=== PATIENT | female | born 1990 | race Caucasian/White ===

== ENCOUNTER 2017-04-15 16:23 | Emergency (ER) | payer BC ==
[2017-04-15 17:40] LABS: Hematocrit 33 % (35-47); Mean Corpuscular HGB Conc 33 g/dl (31-36); Mean Corpuscular Hemoglobin 31 pg (27-31); Mean Corpuscular Volume 94 fL (80-97); Mean Platelet Volume 8 um3 (7.4-10.4); Red Blood Count 3.52 10^6/ul (4.0-5.4); Red Cell Distribution Width 13 % (10.5-15); White Blood Count 11.9 10^3/ul (3.5-10.8)
[2017-04-15 17:52] LABS: Urine Bacteria Absent (Absent); Urine Bilirubin Negative (Negative); Urine Glucose Negative (Negative); Urine Nitrite Negative (Negative)
[2017-04-15 17:58] LABS: Albumin 3.7 g/dL (3.2-5.2); Calcium 8.8 mg/dL (8.6-10.3); EGFR African American 193.3 (>60); EGFR Non-African American 150.3 (>60); Globulin 2.9 g/dL (2-4); Potassium 3.4 mmol/L (3.5-5.0); Total Bilirubin 0.3 mg/dL (0.2-1.0); Total Protein 6.6 g/dL (6.4-8.9)
--- NOTE | 2017-04-15 18:18 | ED ---
- HPI Summary HPI Summary: 27F at 25 weeks presents with chest pain, SOB, lower abdominal pain, and right lower leg swelling. She states the chest pain and SOB have occurred intermittent for two months. She was seen in [place] and they advised a CTA which she refused at that time. She states she gets heart palpitations occasionally. She has history of heart palpitations. She states her right lower leg swells occasional. She states she also has pain in her calf. Her last ob appointment was middle of february. She states that she has a lot of pelvic discomfort that was not present in previous pregnancies. She denies any hematuria, vaginal discharge, leaking of fluids, dysuria, flank pain. She admits to constipation and nausea. She denies any fever, diarrhea or vomiting. - History of Current Complaint Chief Complaint: EDOBProblems Stated Complaint: LEG SWELLING/25 WKS PREG-PRESSURE Time Seen by Provider: 04/15/17 17:07 Pain Intensity: 2 - Assessment SAB: 1 IEA: 0 Hx Hysterectomy: No - Additional Pertinent History Maternal Blood Type and Rh: A Positive - Allergies/Home Medications Allergies/Adverse Reactions: Allergies Allergy/AdvReac Type Severity Reaction Status Date / Time Morphine Allergy Severe Chest Verified 04/15/17 16:27 pain/SOB Latex Allergy Unknown Unknown Verified 04/15/17 16:27 Reaction Details PMH/Surg Hx/FS Hx/Imm Hx Endocrine/Hematology History: Denies: Hx Anticoagulant Therapy, Hx Diabetes, Hx Thyroid Disease Cardiovascular History: Denies: Hx Hypertension, Hx Pacemaker/ICD Respiratory History: Reports: Hx Asthma Denies: Hx Chronic Obstructive Pulmonary Disease (COPD) History: Denies: Hx Renal Disease Sensory History: Denies: Hx Hearing Aid Neurological History: Denies: Hx Dementia, Hx Seizures Psychiatric History: Reports: Hx Anxiety, Hx Depression, Other Psychiatric Issues/Disorders - "hx mental illness" Denies: Hx Panic Disorder, Hx Substance Abuse - Surgical History Surgery Procedure, Year, and Place: C SECTION 6 MOS AGO, UTERINE POLYP REMOVAL - Immunization History Date of Tetanus Vaccine: up to date per pt Infectious Disease History: Yes Infectious Disease History: Denies: Hx Hepatitis, Hx Human Immunodeficiency Virus (HIV), Traveled Outside the [place] in Last 30 Days - Family History Known Family History: Negative: Blood Disorder - Social History Alcohol Use: Occasionally Substance Use Type: Reports: None Smoking Status (MU): Heavy Every Day Tobacco Smoker Review of Systems Negative: Fever Positive: Chest Pain Positive: Shortness Of Breath. Negative: Cough Positive: Abdominal Pain, Nausea. Negative: Vomiting, Diarrhea All Other Systems Reviewed And Are Negative: Yes Physical Exam - Physical Exam Triage Information Reviewed: Yes Vital Signs Reviewed: Yes Appearance: Positive: Well-Appearing Skin: Positive: Warm, Dry Head/Face: Positive: Normal Head/Face Inspection Eyes: Positive: Normal, EOMI, ARIES, Conjunctiva Clear ENT: Positive: Normal ENT inspection, Pharynx normal, TMs normal Respiratory/Lung Sounds: Positive: Clear to Auscultation, Breath Sounds Present Cardiovascular: Positive: Normal, RRR Abdomen Description: Positive: Nontender, Soft, Other: - baby felt above umbilicus Bowel Sounds: Positive: Present Musculoskeletal: Positive: Other - good pulses, capillary refill< 2secs. Negative: Serena Sign Left, Serena Sign Right, Edema Left, Edema Right Diagnostics - Vital Signs Vital Signs Temp Pulse Resp BP Pulse Ox 04/15/17 18:00 98 17 106/58 96 04/15/17 17:30 15 04/15/17 17:03 105 104/60 97 04/15/17 17:01 104 96 04/15/17 16:44 105 97 04/15/17 16:42 99.0 F 104 20 122/70 97 04/15/17 16:27 98.6 F 113 16 127/74 99 - Laboratory Lab Results: Lab Results 04/15/17 04/15/17 04/15/17 Range/Units 17:20 17:20 17:20 WBC 11.9 H (3.5-10.8) 10^3/ul RBC 3.52 L (4.0-5.4) 10^6/ul Hgb 11.0 L (12.0-16.0) g/dl Hct 33 L (35-47) % MCV 94 (80-97) fL MCH 31 (27-31) pg MCHC 33 (31-36) g/dl RDW 13 (10.5-15) % Plt Count 276 (150-450) 10^3/ul MPV 8 (7.4-10.4) um3 Neut % (Auto) 73.3 (38-83) % Lymph % (Auto) 21.2 L (25-47) % Wheeler % (Auto) 4.0 (1-9) % Eos % (Auto) 0.7 (0-6) % Baso % (Auto) 0.8 (0-2) % Absolute Neuts (auto) 8.7 H (1.5-7.7) 10^3/ul Absolute Lymphs (auto) 2.5 (1.0-4.8) 10^3/ul Absolute Monos (auto) 0.5 (0-0.8) 10^3/ul Absolute Eos (auto) 0.1 (0-0.6) 10^3/ul Absolute Basos (auto) 0.1 (0-0.2) 10^3/ul Absolute Nucleated RBC 0 10^3/ul Nucleated RBC % 0 INR (Anticoag Therapy) 0.90 (0.89-1.11) APTT 25.9 L (26.0-36.3) seconds Sodium 135 (133-145) mmol/L Potassium 3.4 L (3.5-5.0) mmol/L Chloride 103 (101-111) mmol/L Carbon Dioxide 25 (22-32) mmol/L Anion Gap 7 (2-11) mmol/L BUN 9 (6-24) mg/dL Creatinine 0.50 L (0.51-0.95) mg/dL Est GFR ( Amer) 193.3 (>60) Est GFR (Non-Af Amer) 150.3 (>60) BUN/Creatinine Ratio 18.0 (8-20) Glucose 151 H (70-100) mg/dL Calcium 8.8 (8.6-10.3) mg/dL Total Bilirubin 0.30 (0.2-1.0) mg/dL AST 13 (13-39) U/L ALT 11 (7-52) U/L Alkaline Phosphatase 52 (34-104) U/L Troponin I 0.00 (<0.04) ng/mL Total Protein 6.6 (6.4-8.9) g/dL Albumin 3.7 (3.2-5.2) g/dL Globulin 2.9 (2-4) g/dL Albumin/Globulin Ratio 1.3 (1-3) Beta HCG, Quant Pending Urine Color Urine Appearance Urine pH (5-9) Ur Specific Hinkle (1.010-1.030) Urine Protein (Negative) Urine Ketones (Negative) Urine Blood (Negative) Urine Nitrate (Negative) Urine Bilirubin (Negative) Urine Urobilinogen (Negative) Ur Leukocyte Esterase (Negative) Urine WBC (Auto) (Absent) Urine RBC (Auto) (Absent) Ur Squamous Epith Cells (Absent) Urine Bacteria (Absent) Urine Glucose (Negative) Blood Type 04/15/17 04/15/17 Range/Units 17:20 17:30 WBC (3.5-10.8) 10^3/ul RBC (4.0-5.4) 10^6/ul Hgb (12.0-16.0) g/dl Hct (35-47) % MCV (80-97) fL MCH (27-31) pg MCHC (31-36) g/dl RDW (10.5-15) % Plt Count (150-450) 10^3/ul MPV (7.4-10.4) um3 Neut % (Auto) (38-83) % Lymph % (Auto) (25-47) % Wheeler % (Auto) (1-9) % Eos % (Auto) (0-6) % Baso % (Auto) (0-2) % Absolute Neuts (auto) (1.5-7.7) 10^3/ul Absolute Lymphs (auto) (1.0-4.8) 10^3/ul Absolute Monos (auto) (0-0.8) 10^3/ul Absolute Eos (auto) (0-0.6) 10^3/ul Absolute Basos (auto) (0-0.2) 10^3/ul Absolute Nucleated RBC 10^3/ul Nucleated RBC % INR (Anticoag Therapy) (0.89-1.11) APTT (26.0-36.3) seconds Sodium (133-145) mmol/L Potassium (3.5-5.0) mmol/L Chloride (101-111) mmol/L Carbon Dioxide (22-32) mmol/L Anion Gap (2-11) mmol/L BUN (6-24) mg/dL Creatinine (0.51-0.95) mg/dL Est GFR ( Amer) (>60) Est GFR (Non-Af Amer) (>60) BUN/Creatinine Ratio (8-20) Glucose (70-100) mg/dL Calcium (8.6-10.3) mg/dL Total Bilirubin (0.2-1.0) mg/dL AST (13-39) U/L ALT (7-52) U/L Alkaline Phosphatase (34-104) U/L Troponin I (<0.04) ng/mL Total Protein (6.4-8.9) g/dL Albumin (3.2-5.2) g/dL Globulin (2-4) g/dL Albumin/Globulin Ratio (1-3) Beta HCG, Quant Urine Color Yellow Urine Appearance Clear Urine pH 6.0 (5-9) Ur Specific Hinkle 1.025 (1.010-1.030) Urine Protein Negative (Negative) Urine Ketones 1+ H (Negative) Urine Blood Negative (Negative) Urine Nitrate Negative (Negative) Urine Bilirubin Negative (Negative) Urine Urobilinogen Negative (Negative) Ur Leukocyte Esterase Trace H (Negative) Urine WBC (Auto) Absent (Absent) Urine RBC (Auto) Trace(0-2/hpf) (Absent) Ur Squamous Epith Cells Present H (Absent) Urine Bacteria Absent (Absent) Urine Glucose Negative (Negative) Blood Type A Positive Result Diagrams: 04/15/17 17:20 04/15/17 17:20 Lab Statement: Any lab studies that have been ordered have been reviewed, and results considered in the medical decision making process. - Ultrasound No standard instances Ultrasound Interpretation: Positive (See Comments) - IMPRESSION: Normal single intrauterine gestation with growth parameters that yield an average gestational age of 23 weeks and 0 days. Ultrasound Interpretation Completed By: Radiologist - EKG No standard instances Cardiac Rate: NL EKG Rhythm: Sinus Rhythm ST Segment: Normal Course/Dx - Course Course Of Treatment: 27F at 25 weeks presents with chest pain, SOB, lower abdominal pain, and right lower leg swelling. She states the chest pain and SOB have occurred intermittent for two months. She was seen in [place] and they advised a CTA which she refused at that time. She states she gets heart palpitations occasionally. She has history of heart palpitations. She states her right lower leg swells occasional. She states she also has pain in her calf. Her last ob appointment was middle of february. She states that she has a lot of pelvic discomfort that was not present in previous pregnancies. She denies any hematuria, vaginal discharge, leaking of fluids, dysuria, flank pain. She admits to constipation and nausea. She denies any fever, diarrhea or vomiting. lungs CTA. neg homans, nontender abdomen. u/s calf normal. CTA normal. u/s normal. patient understands and agrees with plan. - Differential Diagnosis/HQI/PQRI: Intrauterine , Other: - PE, DVT, abdominal pain - Diagnoses Provider Diagnoses: Chest pain, Abdominal pain in Discharge - Discharge Plan Condition: Good Disposition: HOME Patient Education Materials: Abdominal Pain in (ED) Referrals: Allie Flaherty NP [Primary Care Provider] - Tara Estrada MD [Medical Doctor] - Additional Instructions: Follow up with obgyn Return to ED if develop any new or worsening symptoms
--- NOTE | 2017-04-15 18:28 | RAD ---
HISTORY: Bilateral lower extremity swelling and chest pain TECHNIQUE: Multiple transverse and longitudinal ultrasound images were obtained of the veins of the bilateral lower extremities using grayscale, color Doppler, and spectral Doppler imaging with and without compression and with augmentation. FINDINGS: VEINS: Bilaterally the common femoral veins, deep femoral veins, femoral veins and popliteal veins are compressible throughout their course, with normal flow on color Doppler imaging and normal response to augmentation on spectral Doppler imaging. SOFT TISSUES: Grossly normal. No large popliteal fossa cyst was identified. IMPRESSION: No sonographic evidence of deep vein thrombosis.
--- NOTE | 2017-04-15 19:01 | RAD ---
INDICATION: Pelvic pain. Comparison: None Multiple transabdominal real time images of the gravid uterus were obtained. This exam demonstrates a single intrauterine in the Cephalic presentation. heart and limb motion were noted. The heart rate was 136 beats per minute. The placenta was located anterior. There is no placenta previa. The amniotic fluid volume appeared to be within normal limits with an amniotic fluid index measuring 14.5 cm. The cervix is closed measuring at least 2.6 cm in length. Biparietal diameter (cm) 5.7 which corresponds to a gestational age of 23 weeks and 3 days. Head circumference (cm) 21.2 which corresponds to a gestational age of 23 weeks and 2 days. abdominal circumference(cm) 17.3 which corresponds to a gestational age of 22 weeks and 2 days. femur length (cm) 4.0 which corresponds to a gestational age of 23 weeks. The composite estimated gestational age was 23 weeks. The estimated weight at this time is 525 grams +/- 77 grams. The four-chamber heart, cord insertion, bladder and three-vessel cord are visualized and appear to be within normal limits. IMPRESSION: Normal single intrauterine gestation with growth parameters that yield an average gestational age of 23 weeks and 0 days.
[2017-04-15] MEDS ORDERED: Iohexol 350* (CONTRAST) 500 ML MDV IV ONE (19:29)
--- NOTE | 2017-04-15 19:48 | RAD ---
INDICATION: Right leg swelling, chest pain and shortness of breath in a 25 week woman COMPARISON: None TECHNIQUE: Axial source images were acquired following the administration of 60 mL Omnipaque [address] angiographic technique. Coronal and sagittal reconstructed images were constructed and reviewed. FINDINGS: There there are no filling defects in the pulmonary arteries to indicate acute pulmonary embolic disease. There are no focal infiltrates or effusions. There are no pulmonary parenchymal masses. The heart is normal in size. There is no evidence of pericardial effusion. There is no evidence of aortic aneurysm or dissection. There is no mediastinal, hilar, or axillary lymphadenopathy. The visualized osseous structures appear normal. Limited views of the upper abdomen show no abnormalities. IMPRESSION: No CT of evidence of pulmonary embolism.
[2017-04-15 20:33] VITALS: BP 94/55
== END 2017-04-15 20:52 | disposition home or self-care (01) ==
LOC: ED 16:23
DX: R07.9 Chest pain, unspecified (principal); F17.210 Nicotine dependence, cigarettes, uncomplicated; R06.02 Shortness of breath; R10.9 Unspecified abdominal pain; R11.0 Nausea; Z34.92 Encounter for supervision of normal pregnancy, unspecified, second trimester
CPT/HCPCS: 36415; 71275; 76815; 80053; 81003; 81015; 84484; 84702; 85025; 85610; 85730; 86900; 86901; 87086; 93005; 93970; 99283; Q9967

== ENCOUNTER 2017-07-23 06:13 | Inpatient (IN) | payer MEDICAID ==
[~2017-07-23 06:13] MED LIST: Sodium Citrate/Citric Acid* 15 ML UDC PO ONE
[2017-07-23] MEDS ORDERED: ceFOXitin 2 GM IVPREMIX* 2 GM/50 ML BAG IVPB ONE (07:00)
[2017-07-23] MEDS ORDERED: OXYTOCIN* 10 UNITS/ML 1 ML VIAL ONE (09:32)
[2017-07-23] MEDS ORDERED: Ketorolac INJ* 30 MG/ML 1 ML VIAL ONE (09:32)
[2017-07-23] MEDS ORDERED: Ondansetron INJ* 2 MG/ML VIAL ONE (09:32)
[2017-07-23] MEDS ORDERED: Midazolam* 1 MG/ML 2 ML VIAL (2 MG) ONE (10:18)
[2017-07-23] MEDS ORDERED: Phenylephrine IV* 40 MCG/ML 10 ML SYRINGE ONE (10:21)
[2017-07-23] MEDS ORDERED: EPHEDrine (Pressors)* 50 MG/ML VIAL ONE (10:22)
[2017-07-23] MEDS ORDERED: Witch Hazel PAD* JAR TOPICAL PRN (10:48)
[2017-07-23] MEDS ORDERED: Glycerin ADULT SUPP PR PRN (10:48)
[2017-07-23] MEDS ORDERED: Zolpidem TAB* 5 MG PO PRN (10:48)
[2017-07-23] MEDS ORDERED: Dibucaine 1% 28.35 GM TUBE PR PRN (10:48)
[2017-07-23] MEDS ORDERED: Tetan/Diph/Pertus SYR(Tdap)* 0.5 ML SYR(BOOSTRIX) use SYR IM ONE (10:48)
[2017-07-23] MEDS ORDERED: Acetaminophen TAB* 325 MG PO PRN (10:48)
[2017-07-23] MEDS ORDERED: oxyCODONE/Acetamin 5/325 MG* TAB PO PRN (10:55)
[2017-07-23] MEDS ORDERED: DiMENhydriNATE IV* 50 MG/ML VIAL IV PUSH PRN (10:55)
[2017-07-23] MEDS ORDERED: Acetaminophen IV 1GM/100ML * 1,000 MG/100 ML VIAL IVPB ONE (10:55)
[2017-07-23] MEDS ORDERED: Oxytocin in LR* 0 UNITS/0 ML BAG IVPB ONE (10:59)
[2017-07-23] MEDS ORDERED: Acetaminophen IV 1GM/100ML * 100 ML ONE (10:59)
[2017-07-23] MEDS: oxyCODONE/Acetamin 5/325 MG* TAB PO PRN ×3 (12:14→20:04)
[2017-07-23] MEDS: Simethicone TAB* 80 MG TAB.CHEW PO SCH ×3 (14:33→20:04)
[2017-07-23] MEDS: Docusate CAP* 100 MG PO SCH ×2 (14:33→20:04)
[2017-07-23] MEDS: Ibuprofen TAB* 600 MG PO PRN ×2 (16:04→22:39)
[2017-07-24] MEDS: oxyCODONE/Acetamin 5/325 MG* TAB PO PRN ×6 (00:01→23:29)
[2017-07-24] MEDS: Ibuprofen TAB* 600 MG PO PRN ×3 (04:14→21:01)
[2017-07-24] MEDS: Docusate CAP* 100 MG PO SCH ×3 (08:18→21:01)
[2017-07-24] MEDS: Simethicone TAB* 80 MG TAB.CHEW PO SCH ×4 (08:18→23:32)
[2017-07-24 08:22] LABS: ABS Basophils 0 10^3/ul (0-0.2); ABS Eosinophils 0.1 10^3/ul (0-0.6); ABS Lymphocytes 2.4 10^3/ul (1.0-4.8); ABS Monocytes 1.3 10^3/ul (0-0.8); ABS Neutrophils 11.8 10^3/ul (1.5-7.7); ABS Nucleated RBC 0 10^3/ul; Eosinophil % 0.9 % (0-6); Hematocrit 28 % (35-47); Hemoglobin 8.8 g/dl (12.0-16.0); Mean Corpuscular HGB Conc 32 g/dl (31-36); Mean Corpuscular Hemoglobin 27 pg (27-31); Mean Corpuscular Volume 86 fL (80-97); Mean Platelet Volume 8 um3 (7.4-10.4); Nucleated Red Blood Cells % 0; Platelet Count 222 10^3/ul (150-450); Red Blood Count 3.23 10^6/ul (4.0-5.4); Red Cell Distribution Width 14 % (10.5-15); White Blood Count 15.7 10^3/ul (3.5-10.8)
[2017-07-24] MEDS: Ferrous Gluconate TAB* 324 MG TAB PO SCH ×2 (08:26→23:35)
--- NOTE | 2017-07-24 15:26 | PTEDU ---
Patient Name: ALICIA BUTTERFIELD YUE GALLARDOVCHENKOALICIA selected video: Never Ever Shake a Baby to view on 07/24/2017 at 3:25:55 PM [id number]
[2017-07-25] MEDS: Ibuprofen TAB* 600 MG PO PRN ×2 (03:20→16:08)
[2017-07-25] MEDS: oxyCODONE/Acetamin 5/325 MG* TAB PO PRN ×5 (03:37→21:40)
[2017-07-25] MEDS: Simethicone TAB* 80 MG TAB.CHEW PO SCH ×4 (08:04→21:40)
[2017-07-25] MEDS: Docusate CAP* 100 MG PO SCH ×3 (08:04→21:39)
[2017-07-25] MEDS: Ferrous Gluconate TAB* 324 MG TAB PO SCH ×2 (08:07→21:50)
[2017-07-25 19:49] VITALS: BP 117/61
[2017-07-26] MEDS: Ibuprofen TAB* 600 MG PO PRN ×3 (00:49→15:30)
[2017-07-26] MEDS: oxyCODONE/Acetamin 5/325 MG* TAB PO PRN ×4 (01:57→15:30)
[2017-07-26] MEDS: Simethicone TAB* 80 MG TAB.CHEW PO SCH (11:23)
[2017-07-26] MEDS: Ferrous Gluconate TAB* 324 MG TAB PO SCH (11:23)
[2017-07-26] MEDS: Docusate CAP* 100 MG PO SCH (11:23)
--- NOTE | 2017-07-29 23:48 | OP ---
DATE OF OPERATION: 07/23/17 - ROOM #[id number] DATE OF : 89 SURGEON: Ulysses Adams MD BILLING AND ACCOUNTING STAFF ASSISTANT: Dr. Lara. ANESTHESIA: Spinal. PRE-OP DIAGNOSIS: Intrauterine at 38 weeks with a prior section and a prior myomectomy. POST-OP DIAGNOSIS: Intrauterine at 38 weeks with a prior section and a prior myomectomy. OPERATIVE PROCEDURE: Repeat low transverse section. ESTIMATED BLOOD LOSS: 500 cc. SPECIMENS: Sent to pathology were cord blood. FLUIDS: She received 1400 cc of IV crystalloid fluid. URINE OUTPUT: Clear. FINDINGS: Delivery of a viable male with clear fluid with a weight of 6 pounds and 7 ounces, with Apgars of 8 and 9. The placenta was grossly intact with a 3-vessel cord noted. The uterus, adnexa, bowel and bladder were within normal limits and there were no complications. DESCRIPTION OF PROCEDURE: The patient was taken to the operating room where she was identified. She was placed on the operating table where a spinal anesthetic was obtained without difficulty. She was then placed in the supine position with a leftward tilt, prepped and draped in a normal sterile fashion. A Pfannenstiel skin incision was then made with a knife and carried through to the underlying layer of fascia. The fascia was then nicked in the midline and extended laterally with curved Pang scissors. The fascia was then grasped superiorly and inferiorly with Gail clamps and dissected off sharply from the rectus muscle. The rectus muscle was in the midline bluntly. The peritoneum was identified, grasped with pickups, and entered sharply with Metzenbaum scissors and extended superiorly and inferiorly with sharp dissection. A bladder blade was inserted into the patient's abdomen, a bladder flap was created using Metzenbaum scissors over which the bladder blade was then reinserted. A low transverse uterine incision was then made with a knife, extended laterally with bandage scissors. The amniotic sac was ruptured. The 's head was then grasped and delivered atraumatically, after which the rest of the 's body was then delivered. The cord was clamped and cut. The infant was handed off to the awaiting concrete floor installer. Cord bloods were obtained. The placenta was removed manually. The uterus was then exteriorized and cleared of all clot and debris using moist laparotomy sponges. The uterine incision was then closed using 0 Polysorb suture in a running locked fashion with a second imbricating layer of 0 Polysorb suture. The uterine incision was noted to be hemostatic. The uterus was returned to the patient's abdomen, the gutters were then cleared of all clot and debris using moist laparotomy sponges. All the sponges intermittently removed from the patient's abdomen. The peritoneum was then closed using 0 Polysorb suture in a running locked fashion. The fascia was closed using 0 Polysorb suture in a running locked fashion, and the skin was closed with 4- 0 Monocryl stitch in a subcuticular fashion. The patient tolerated the procedure well. Sponge, lap, needle counts were correct x2, was then transferred to the recovery room area in stable condition. [id number]/[facility] #: [id number] YESICA
== END 2017-07-26 15:33 | disposition home or self-care (01) | DRG 540 ==
LOC: MCHOB 06:13
PROVIDERS: ADMIT Obstetrics & Gynecology; ATTEND Obstetrics & Gynecology
PROC: 10D00Z1 Extraction of Products of Conception, Low, Open Approach (ICD-10-PCS; principal; 2017-07-23 09:30)
DX: O34.211 Maternal care for low transverse scar from previous cesarean delivery (principal); F17.200 Nicotine dependence, unspecified, uncomplicated; Z37.0 Single live birth; O99.334 Smoking (tobacco) complicating childbirth; Z91.040 Latex allergy status; Z3A.38 38 weeks gestation of pregnancy; Z88.5 Allergy status to narcotic agent; O90.81 Anemia of the puerperium
CPT/HCPCS: 36415; 85025; A9270-GY; J0694; J1885; J2250; J2405; J2590

== ENCOUNTER 2018-03-08 18:41 | Inpatient (IN) | payer MEDICAID ==
[2018-03-08] MEDS ORDERED: Ondansetron ODT TAB* 4 MG PO ONE (19:48)
[2018-03-08 20:02] LABS: ABS Basophils 0.1 10^3/ul (0-0.2); ABS Eosinophils 0 10^3/ul (0-0.6); ABS Lymphocytes 1.7 10^3/ul (1.0-4.8); ABS Monocytes 0.9 10^3/ul (0-0.8); ABS Neutrophils 17.9 10^3/ul (1.5-7.7); ABS Nucleated RBC 0 10^3/ul; Eosinophil % 0.2 % (0-6); Hematocrit 39 % (35-47); Hemoglobin 12.8 g/dl (12.0-16.0); Lymphocyte % 8.2 % (25-47); Mean Corpuscular HGB Conc 33 g/dl (31-36); Mean Corpuscular Hemoglobin 30 pg (27-31); Mean Corpuscular Volume 91 fL (80-97); Mean Platelet Volume 7.9 um3 (7.4-10.4); Nucleated Red Blood Cells % 0; Platelet Count 308 10^3/ul (150-450); Red Blood Count 4.28 10^6/ul (4.00-5.40); Red Cell Distribution Width 15 % (10.5-15); White Blood Count 20.6 10^3/ul (3.5-10.8)
[2018-03-08 20:22] LABS: EGFR Non-African American 86.7 (>60)
[2018-03-08] MEDS ORDERED: NS 0.9% 1000 ML* 1,000 ML IV ONE (20:34)
[2018-03-08] MEDS ORDERED: Iohexol 300* (CONTRAST) 10 ML SDV IV ONE (21:08)
[2018-03-08] MEDS ORDERED: Metoclopramide IV* 5 MG/ML 2 ML VIAL IV ONE (21:38)
[2018-03-09 00:50] LABS: Urine Appearance Clear; Urine Blood Negative (Negative); Urine Color Yellow; Urine Ketones Negative (Negative); Urine Protein Negative (Negative); Urine Specific Gravity > 1.060 (1.010-1.030); Urine Urobilinogen Negative (Negative)
[2018-03-09] MEDS ORDERED: Piperacillin/Tazobac ADVAN(*) 3.375 GM in NS 0.9% 100 ML* 100 ML IVPB ONE (01:25)
[2018-03-09] MEDS ORDERED: NS 0.9% 1000 ML*IV.FLUID IV ONE (01:25)
[2018-03-09] MEDS ORDERED: Vancomycin(*) 1,000 MG - ED ONCE IVPB STA ×2 (01:35)
[2018-03-09] MEDS ORDERED: Vancomycin(*) 1,000 MG VIAL IVPB SCH (02:00)
--- NOTE | 2018-03-09 02:00 | HP ---
H&P (Free Text) History and Physical: PCP: Jose Flaherty NP Date/Time: 03/09/2018 0150 CC: malaise HPI: Mrs Timo Jeffries is a 28YO female HX migraines, IBS, PCOS, asthma, endometrial polyps who states she developed a typical migraine 03/08/2018 ~1030a , but had run out of her Fioricet with codeine as she has recently moved from [place] and has yet to see a physician. She does have an initial appointment on Saturday with Jose Flaherty NP. A friend of her gave her 1/2 of one of their pain medications which she later found out was suboxone around 1530 and she subsequently became very tired and developed subjective F/C, rigors, and profuse sweating. Her temperature at home was 94F. She continued feeling worse with light-headedness, lower abdominal pain/cramping, N/V, and delirium ( hearing children's voices playing). She was planning on waiting to see her new provider on Saturday, but as she was rapidly worsening and appeared ill, her friend encouraged her to come to the ED. Work up revealed temp of 36.1C, WBCs 20k, total CK of 723. CXR was negative, as was her urinalysis. Her initial blood pressures of 130s systolic dipped frequently into the 90s systolic, but stabilized after 30mg/kg IVFs. She had no nuchal rigidity. CT abd/pel WO was negative, but a tampon was noted in the vaginal vault. She states she has been having brownish discharge since the start of her last menstrual cycle 02/24. She states she has changed tampons frequently. Her current tampon was requested to be removed by ED staff and unfortunately discarded prior to CX from it being obtained. Given her rapidly worsening septic presentation, young age, unidentifiable source, CPK >2x normal limits, and tampon presence high suspicion for impending toxic shock syndrome was entertained and aggressive management undertaken. PMedHx migraines IBS PCOS asthma endometrial polyps Ambulatory Orders Nursing to reconcile. Albuterol HFA INHALER* 2 puff INH Q4HR PRN 07/22/17 Fioricet Tab* With Codeine 1 tab PO Q6HR PRN 07/22/17 Vitamin TAB* 1 tab PO DAILY 07/23/17 Acetaminophen TAB* [Tylenol TAB*] 650 mg PO Q4H PRN tab 07/26/17 Docusate CAP* [Colace Cap*] 100 mg PO BID #60 cap 07/26/17 Ferrous Gluconate TAB* [Fergon TAB*] 324 mg PO BID #60 tab 07/26/17 Ibuprofen TAB* [Motrin TAB* 600 MG] 600 mg PO Q6H PRN #30 tab 07/26/17 oxyCODONE/Acetamin 5/325 MG* [Percocet 5/325 TAB*] 2 tab PO Q4H PRN #25 tab MDD 8 07/26/17 Allergies latex Allergy (Verified 03/08/18 18:59) Unknown Reaction Details morphine Allergy (Verified 03/08/18 18:59) Unknown Reaction Details PSurgHx hysteroscopy fibroid excision section x2 SocHx: 1/2 PPD cigarettes, occasional alcohol, occasional marijuana but no other recreational drugs; lives with her , 2 children; full code status FamHx: maternal Grandmother: [id number] deficiency ROS: as above, otherwise reviewed and all were negative vitals: Vital Signs Temp 37.0 C 03/09/18 03:54 Pulse 86 03/09/18 03:54 Resp 16 03/09/18 03:54 BP 137/81 03/09/18 03:54 Pulse Ox 99 03/09/18 03:54 Intake & Output 03/08/18 03/08/18 03/09/18 11:59 23:59 11:59 Weight 70.307 kg 67.857 kg Constitutional: NAD, normally developed, well-nourished white female HEENM: atraumatic; sclera/conjunctiva: anicteric/clear; hearing: clinically intact; oropharynx: clear, mucosa moist Neck: soft tissue: no nuchal rigidity; thyroid: normal Pulmonary: clear to auscultation bilaterally, good aeration, no accessory muscle use CV: RR/RR, normal S1S2, no carotid bruit, no jugular venous distention, 2+ B DP/ PT, no edema Abdominal: soft, non-distended, mildly tender lower abdomen, no rebound/guarding /rigidity, normoactive bowel sounds, no hepatosplenomegaly or masses, no costovertebral angle tenderness Gynecologic: Normal external genitalia & vaginal vault. Normal cervix w/o discharge or erythema. Negative Chandalier's sign. GC/chlamydia & genital CXs sent. Musculoskeletal: general: grossly intact; gait: stable Integumental: normal appearance and texture throughout Psychiatric orientation: AA&O to PPST affect: calm mood: cooperative eye contact: good content: reliable responses: timely insight: good Testing: Lab Results 03/08/18 03/08/18 03/09/18 Range/Units 19:54 19:54 00:24 WBC 20.6 H (3.5-10.8) 10^3/ul RBC 4.28 (4.00-5.40) 10^6/ul Hgb 12.8 (12.0-16.0) g/dl Hct 39 (35-47) % MCV 91 (80-97) fL MCH 30 (27-31) pg MCHC 33 (31-36) g/dl RDW 15 (10.5-15) % Plt Count 308 (150-450) 10^3/ul MPV 7.9 (7.4-10.4) um3 Neut % (Auto) 87.0 H (38-83) % Lymph % (Auto) 8.2 L (25-47) % Nelson % (Auto) 4.2 (0-7) % Eos % (Auto) 0.2 (0-6) % Baso % (Auto) 0.4 (0-2) % Absolute Neuts (auto) 17.9 H (1.5-7.7) 10^3/ul Absolute Lymphs (auto) 1.7 (1.0-4.8) 10^3/ul Absolute Monos (auto) 0.9 H (0-0.8) 10^3/ul Absolute Eos (auto) 0 (0-0.6) 10^3/ul Absolute Basos (auto) 0.1 (0-0.2) 10^3/ul Absolute Nucleated RBC 0 10^3/ul Nucleated RBC % 0 APTT (26.0-36.3) seconds Sodium 138 (135-145) mmol/L Potassium 4.1 (3.5-5.0) mmol/L Chloride 103 (101-111) mmol/L Carbon Dioxide 26 (22-32) mmol/L Anion Gap 9 (2-11) mmol/L BUN 13 (6-24) mg/dL Creatinine 0.80 (0.51-0.95) mg/dL Est GFR ( Amer) 104.9 (>60) Est GFR (Non-Af Amer) 86.7 (>60) BUN/Creatinine Ratio 16.3 (8-20) Glucose 174 H (70-100) mg/dL Lactic Acid (0.5-2.0) mmol/L Calcium 9.7 (8.6-10.3) mg/dL Total Bilirubin 0.40 (0.2-1.0) mg/dL AST 25 (13-39) U/L ALT 20 (7-52) U/L Alkaline Phosphatase 84 (34-104) U/L Total Creatine Kinase 723 H (10-223) U/L Troponin I 0.00 (<0.04) ng/mL Total Protein 7.6 (6.4-8.9) g/dL Albumin 4.6 (3.2-5.2) g/dL Globulin 3.0 (2-4) g/dL Albumin/Globulin Ratio 1.5 (1-3) Beta HCG, Quant < 0.60 mIU/mL Urine Color Yellow Urine Appearance Clear Urine pH 6.0 (5-9) Ur Specific [place] > 1.060 H (1.010-1.030) Urine Protein Negative (Negative) Urine Ketones Negative (Negative) Urine Blood Negative (Negative) Urine Nitrate Negative (Negative) Urine Bilirubin Negative (Negative) Urine Urobilinogen Negative (Negative) Ur Leukocyte Esterase Negative (Negative) Urine Glucose Negative (Negative) 18 03/09/18 Range/Units 01:33 01:33 WBC (3.5-10.8) 10^3/ul RBC (4.00-5.40) 10^6/ul Hgb (12.0-16.0) g/dl Hct (35-47) % MCV (80-97) fL MCH (27-31) pg MCHC (31-36) g/dl RDW (10.5-15) % Plt Count (150-450) 10^3/ul MPV (7.4-10.4) um3 Neut % (Auto) (38-83) % Lymph % (Auto) (25-47) % Nelson % (Auto) (0-7) % Eos % (Auto) (0-6) % Baso % (Auto) (0-2) % Absolute Neuts (auto) (1.5-7.7) 10^3/ul Absolute Lymphs (auto) (1.0-4.8) 10^3/ul Absolute Monos (auto) (0-0.8) 10^3/ul Absolute Eos (auto) (0-0.6) 10^3/ul Absolute Basos (auto) (0-0.2) 10^3/ul Absolute Nucleated RBC 10^3/ul Nucleated RBC % APTT 30.0 (26.0-36.3) seconds Sodium (135-145) mmol/L Potassium (3.5-5.0) mmol/L Chloride (101-111) mmol/L Carbon Dioxide (22-32) mmol/L Anion Gap (2-11) mmol/L BUN (6-24) mg/dL Creatinine (0.51-0.95) mg/dL Est GFR ( Amer) (>60) Est GFR (Non-Af Amer) (>60) BUN/Creatinine Ratio (8-20) Glucose (70-100) mg/dL Lactic Acid 0.9 (0.5-2.0) mmol/L Calcium (8.6-10.3) mg/dL Total Bilirubin (0.2-1.0) mg/dL AST (13-39) U/L ALT (7-52) U/L Alkaline Phosphatase (34-104) U/L Total Creatine Kinase (10-223) U/L Troponin I (<0.04) ng/mL Total Protein (6.4-8.9) g/dL Albumin (3.2-5.2) g/dL Globulin (2-4) g/dL Albumin/Globulin Ratio (1-3) Beta HCG, Quant mIU/mL Urine Color Urine Appearance Urine pH (5-9) Ur Specific [place] (1.010-1.030) Urine Protein (Negative) Urine Ketones (Negative) Urine Blood (Negative) Urine Nitrate (Negative) Urine Bilirubin (Negative) Urine Urobilinogen (Negative) Ur Leukocyte Esterase (Negative) Urine Glucose (Negative) ECG, personally reviewed: sinus bradycardia rate 54, no ischemia CXR, personally reviewed: no acute process CT abd/pel WO, personally reviewed: FINDINGS: Dependent bilateral lower lobe atelectasis. No pleural effusions. The liver, gallbladder, pancreas, adrenal glands, and spleen are unremarkable Early contrast from the kidneys partially limits evaluation for intrarenal calculus. No ureteral calculi or hydronephrosis. No AAA. Moderate stool in the colon. No evidence for diverticulitis, small bowel obstruction, or free air. Part of a normal appendix is noted on coronal images 44-53. 1.4cm and 2cm ovarian cysts. Minimal free pelvic fluid. Indwelling tampon. US pelvic: FINDINGS: The uterus and endometrial stripe appear normal. 1.8cm right ovarian cyst, likely a dominant follicle. Left ovary appears normal. Duplex Ultrasound: Appropriate arterial and/or venous flow are noted in both ovaries, making torsion unlikely at this time. Impression: 28F presenting with rapidly progressing sepsis of unidentified origin found to have and indwelling tampon and CPK >2x normal highly suspicious for impending toxic shock syndrome DIAGNOSIS & PLAN Primary severe sepsis (hypothermia, leukocytosis, hypotension) with high suspicion of early toxic shock syndrome : IV piperacillin/tazobactam & vancomycin given in ED - will continue vancomycin IV and add clindamycin IV : genital & blood CXs drawn - if staph isolated test for toxin production : sepsis IVFs given in ED : consider infectious disease consult in AM : supportive care Secondary migraines : continue Fioricet PRN IBS : continue docusate PCOS : no acute issues asthma : PRN albuterol Admission Rational: inpatient for severe sepsis with high suspicion of impending toxic shock syndrome requiring IVFs & IV ABX; inappropriate for outpatient setting DVTp: HUMA Code Status: full HCP:
[2018-03-09] MEDS ORDERED: Albuterol 2.5 MG/3 ML NEB.SOL* (0.083%) INH PRN (02:30)
[2018-03-09] MEDS ORDERED: Acetaminophen TAB* 325 MG PO PRN (02:30)
[2018-03-09] MEDS ORDERED: Clindamycin 900 MG IVPREMIX(* 900 MG/50 ML SDV IV ONE (02:50)
[2018-03-09] MEDS ORDERED: Melatonin 3 MG TAB PO PRN (02:52)
[2018-03-09] MEDS ORDERED: Ondansetron ODT TAB* 4 MG PO PRN (02:55)
[2018-03-09] MEDS ORDERED: NS 0.9% 1000 ML* 1,000 ML IV SCH (03:00)
[2018-03-09] MEDS ORDERED: Butalb/Acetamin/Caff TAB* 1 TAB PO PRN (03:00)
[2018-03-09] MEDS ORDERED: Vancomycin per Pharmacy* NOTE FOLLOW UP SCH (03:00)
--- NOTE | 2018-03-09 03:22 | ED ---
Lopez Mclaughlin Rebecca, scribed for Declan Wyatt on 03/08/18 at 1933 . Complex/Multi-Sys Presentation - HPI Summary HPI Summary: Pt is a 28 y/o F who presents to ED c/o nausea. Sx began earlier today after taking Suboxone for a migraine, given to her by a friend. Took the medication at about 1530. Additionally c/o fatigue and abdominal pain. 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 PMHx migraines - gets them often and that she usually takes fioricet with codeine, prescribed by her PCP in [place]. However , she ran out and is not scheduled to see a new PCP until 03/10 (2 days from today ). - History Of Current Complaint Chief Complaint: EDGeneral Time Seen by Provider: 03/08/18 19:18 Hx Obtained From: Patient Onset/Duration: Still Present Severity Currently: None Location: Negative Aggravating Factor(s): Brought on after taking Suboxone Associated Signs And Symptoms: Positive: Nausea, Other - Fatigue - Allergies/Home Medications Allergies/Adverse Reactions: Allergies Allergy/AdvReac Type Severity Reaction Status Date / Time latex Allergy Unknown Verified 03/08/18 18:59 Reaction Details morphine Allergy Unknown Verified 03/08/18 18:59 Reaction Details PMH/Surg Hx/FS Hx/Imm Hx Endocrine/Hematology History: Denies: Hx Anticoagulant Therapy, Hx Diabetes, Hx Thyroid Disease Cardiovascular History: Denies: Hx Hypertension, Hx Pacemaker/ICD Respiratory History: Reports: Hx Asthma Denies: Hx Chronic Obstructive Pulmonary Disease (COPD) History: Denies: Hx Renal Disease Sensory History: Denies: Hx Hearing Aid Neurological History: Denies: Hx Dementia, Hx Seizures Psychiatric History: Reports: Hx Anxiety, Hx Depression, Other Psychiatric Issues/Disorders - "hx mental illness" Denies: Hx Panic Disorder, Hx Substance Abuse - Surgical History Surgery Procedure, Year, and Place: C SECTION 6 MOS AGO, UTERINE POLYP REMOVAL - Immunization History Date of Tetanus Vaccine: up to date per pt Infectious Disease History: No Infectious Disease History: Denies: Hx Hepatitis, Hx Human Immunodeficiency Virus (HIV), Traveled Outside the [place] in Last 30 Days - Family History Known Family History: Negative: Blood Disorder - Social History Alcohol Use: Occasionally Substance Use Type: Reports: None Smoking Status (MU): Heavy Every Day Tobacco Smoker Have You Smoked in the Last Year: Yes Review of Systems Positive: Fatigue, Other - Low temperature Positive: Abdominal Pain - "sore lately", Nausea All Other Systems Reviewed And Are Negative: Yes Physical Exam - Summary Physical Exam Summary: Appearance: Well appearing, no pain distress Skin: warm, dry, reflects adequate perfusion Head/face: normal Eyes: EOMI, ARIES ENT: normal Neck: supple, non-tender Respiratory: CTA, breath sounds present Cardiovascular: RRR, pulses symmetrical Abdomen: non-tender, soft Bowel: present Musculoskeletal: normal, strength/ROM intact Neuro: normal, sensory motor intact, A&Ox3 Triage Information Reviewed: Yes Vital Signs On Initial Exam: Initial Vitals Temp Pulse Resp BP Pulse Ox 96.9 F 85 14 134/93 98 03/08/18 18:55 03/08/18 18:55 03/08/18 18:55 03/08/18 18:55 03/08/18 18:55 Vital Signs Reviewed: Yes Diagnostics - Vital Signs Vital Signs Temp Pulse Resp BP Pulse Ox 03/08/18 18:55 96.9 F 85 14 134/93 98 - Laboratory Lab Results: Lab Results 03/08/18 03/08/18 03/09/18 Range/Units 19:54 19:54 00:24 WBC 20.6 H (3.5-10.8) 10^3/ul RBC 4.28 (4.00-5.40) 10^6/ul Hgb 12.8 (12.0-16.0) g/dl Hct 39 (35-47) % MCV 91 (80-97) fL MCH 30 (27-31) pg MCHC 33 (31-36) g/dl RDW 15 (10.5-15) % Plt Count 308 (150-450) 10^3/ul MPV 7.9 (7.4-10.4) um3 Neut % (Auto) 87.0 H (38-83) % Lymph % (Auto) 8.2 L (25-47) % [place] % (Auto) 4.2 (0-7) % Eos % (Auto) 0.2 (0-6) % Baso % (Auto) 0.4 (0-2) % Absolute Neuts (auto) 17.9 H (1.5-7.7) 10^3/ul Absolute Lymphs (auto) 1.7 (1.0-4.8) 10^3/ul Absolute Monos (auto) 0.9 H (0-0.8) 10^3/ul Absolute Eos (auto) 0 (0-0.6) 10^3/ul Absolute Basos (auto) 0.1 (0-0.2) 10^3/ul Absolute Nucleated RBC 0 10^3/ul Nucleated RBC % 0 APTT (26.0-36.3) seconds Sodium 138 (135-145) mmol/L Potassium 4.1 (3.5-5.0) mmol/L Chloride 103 (101-111) mmol/L Carbon Dioxide 26 (22-32) mmol/L Anion Gap 9 (2-11) mmol/L BUN 13 (6-24) mg/dL Creatinine 0.80 (0.51-0.95) mg/dL Est GFR ( Amer) 104.9 (>60) Est GFR (Non-Af Amer) 86.7 (>60) BUN/Creatinine Ratio 16.3 (8-20) Glucose 174 H (70-100) mg/dL Lactic Acid (0.5-2.0) mmol/L Calcium 9.7 (8.6-10.3) mg/dL Total Bilirubin 0.40 (0.2-1.0) mg/dL AST 25 (13-39) U/L ALT 20 (7-52) U/L Alkaline Phosphatase 84 (34-104) U/L Troponin I 0.00 (<0.04) ng/mL Total Protein 7.6 (6.4-8.9) g/dL Albumin 4.6 (3.2-5.2) g/dL Globulin 3.0 (2-4) g/dL Albumin/Globulin Ratio 1.5 (1-3) Beta HCG, Quant < 0.60 mIU/mL Urine Color Yellow Urine Appearance Clear Urine pH 6.0 (5-9) Ur Specific [place] > 1.060 H (1.010-1.030) Urine Protein Negative (Negative) Urine Ketones Negative (Negative) Urine Blood Negative (Negative) Urine Nitrate Negative (Negative) Urine Bilirubin Negative (Negative) Urine Urobilinogen Negative (Negative) Ur Leukocyte Esterase Negative (Negative) Urine Glucose Negative (Negative) 03/09/18 03/09/18 Range/Units 01:33 01:33 WBC (3.5-10.8) 10^3/ul RBC (4.00-5.40) 10^6/ul Hgb (12.0-16.0) g/dl Hct (35-47) % MCV (80-97) fL MCH (27-31) pg MCHC (31-36) g/dl RDW (10.5-15) % Plt Count (150-450) 10^3/ul MPV (7.4-10.4) um3 Neut % (Auto) (38-83) % Lymph % (Auto) (25-47) % [place] % (Auto) (0-7) % Eos % (Auto) (0-6) % Baso % (Auto) (0-2) % Absolute Neuts (auto) (1.5-7.7) 10^3/ul Absolute Lymphs (auto) (1.0-4.8) 10^3/ul Absolute Monos (auto) (0-0.8) 10^3/ul Absolute Eos (auto) (0-0.6) 10^3/ul Absolute Basos (auto) (0-0.2) 10^3/ul Absolute Nucleated RBC 10^3/ul Nucleated RBC % APTT 30.0 (26.0-36.3) seconds Sodium (135-145) mmol/L Potassium (3.5-5.0) mmol/L Chloride (101-111) mmol/L Carbon Dioxide (22-32) mmol/L Anion Gap (2-11) mmol/L BUN (6-24) mg/dL Creatinine (0.51-0.95) mg/dL Est GFR ( Amer) (>60) Est GFR (Non-Af Amer) (>60) BUN/Creatinine Ratio (8-20) Glucose (70-100) mg/dL Lactic Acid 0.9 (0.5-2.0) mmol/L Calcium (8.6-10.3) mg/dL Total Bilirubin (0.2-1.0) mg/dL AST (13-39) U/L ALT (7-52) U/L Alkaline Phosphatase (34-104) U/L Troponin I (<0.04) ng/mL Total Protein (6.4-8.9) g/dL Albumin (3.2-5.2) g/dL Globulin (2-4) g/dL Albumin/Globulin Ratio (1-3) Beta HCG, Quant mIU/mL Urine Color Urine Appearance Urine pH (5-9) Ur Specific [place] (1.010-1.030) Urine Protein (Negative) Urine Ketones (Negative) Urine Blood (Negative) Urine Nitrate (Negative) Urine Bilirubin (Negative) Urine Urobilinogen (Negative) Ur Leukocyte Esterase (Negative) Urine Glucose (Negative) Result Diagrams: 03/08/18 19:54 03/08/18 19:54 Lab Statement: Any lab studies that have been ordered have been reviewed, and results considered in the medical decision making process. - CT CT Abd/Pel CT Interpretation Completed By: Radiologist - Dependent bilateral lower lobe atelectasis. No pleural effusions. The liver, gallbladder, pancreas, adrenal glands, and spleen are unremarkable. Early contrast excretion from the kidneys partially limit evaluation for intrarenal calculi. No ureteral calculi or hydronephrosis. No AAA. Moderate stool in the colon. No evidence for diverticulitis, small bowel obstruction, or free air. Part of a normal appendix is noted on coronal images 44-53. *1.4 cm and 2 cm right ovarian cysts. Minimal free pelvic fluid. Indwelling tampon. - Ultrasound No standard instances Ultrasound Interpretation Completed By: Radiologist - Pelvis US: The uterus and edometrial stripe appear normal. 1.8 cm simple right ovarian cyst, likely a dominant follicle. Left ovary appears normal. Duplex Ultrasound: Appropriate arterial and/or venous flow are noted in both ovaries, making torsion unlikely at this time. No significant pelvic fluid. ED physiican reviewed this report. - EKG 1951 Cardiac Rate: Bradycardia - 54 bpm EKG Rhythm: Sinus Bradycardia EKG Interpretation: No acute changes Re-Evaluation - Re-Evaluation First Eval Re-Evaluation Time: 20:35 Comment: Pt is now tender in the RLQ and LLQ. Complex Multi-Symp Course/Dx Assessment/Plan: Pt is a 28 y/o F who presents to ED c/o nausea since earlier today after taking Suboxone at 1530 for a migraine, given to her by a friend. Additionally c/o fatigue and abdominal pain. 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 PMHx migraines - gets them often and that she usually takes fioricet with codeine, prescribed by her PCP in [place]. However, she ran out and is not scheduled to see a new PCP until 03/10 (2 days from today). CT Abd/Pel shows right ovarian cysts with full impression above. EKG is bradycardic. Pt had blood work done with results including a WBC of 20.6, troponin of 0.00, and glucose of 174. UA is negative for UTI. Her WBC is elevated, she is hypotensive and it looks like she may be in sepsis due to the tampon. In the ED course, pt received fluids, Reglan, Zofran, Vancomycin and Zosyn. Discussed care of pt with Dr. Henderson who accepts pt for admission. Allergies noted. - Diagnoses Differential Diagnoses/HQI/PQRI: Sepsis, Urinary Tract Infection Provider Diagnoses: Toxic shock syndrome, Sepsis, Right ovarian cyst - Physician Notifications Discussed Care Of Patient With: Christopher Henderson Time Discussed With Above Provider: 01:27 Instructed by Provider To: Other - Accepts pt for admission. - Critical Care Time Critical Care Time: 30-74 min Discharge - Sign-Out/Discharge Documenting (check all that apply): Discharge/Admit/Transfer - Admit - Discharge Plan Condition: Stable Disposition: ADMITTED TO [facility] Referrals: Allie Flaherty, [employer] [Primary Care Provider] - - Billing Disposition and Condition Condition: STABLE Disposition: Admitted to [facility] The documentation as recorded by the Lopez hopper Rebecca accurately reflects the service I personally performed and the decisions made by , Delcan Wyatt.
[2018-03-09] MEDS ORDERED: Omeprazole CAP* 20 MG PO SCH (06:00)
[2018-03-09 07:52] LABS: EGFR Non-African American 114.2 (>60)
[2018-03-09 08:14] LABS: ABS Basophils 0 10^3/ul (0-0.2); ABS Eosinophils 0 10^3/ul (0-0.6); ABS Lymphocytes 2.8 10^3/ul (1.0-4.8); ABS Monocytes 0.8 10^3/ul (0-0.8); ABS Neutrophils 8.5 10^3/ul (1.5-7.7); ABS Nucleated RBC 0 10^3/ul; Eosinophil % 0.4 % (0-6); Hematocrit 32 % (35-47); Hemoglobin 10.4 g/dl (12.0-16.0); Lymphocyte % 22.6 % (25-47); Mean Corpuscular HGB Conc 33 g/dl (31-36); Mean Corpuscular Hemoglobin 30 pg (27-31); Mean Corpuscular Volume 91 fL (80-97); Mean Platelet Volume 8.4 um3 (7.4-10.4); Nucleated Red Blood Cells % 0; Platelet Count 224 10^3/ul (150-450); Red Blood Count 3.47 10^6/ul (4.00-5.40); Red Cell Distribution Width 14 % (10.5-15); White Blood Count 12.2 10^3/ul (3.5-10.8)
--- NOTE | 2018-03-09 08:26 | RAD ---
Indication: Appendicitis. Contrast: Administered 93.1 ml of OMNIPAQUE 300 mg/ml CT of the abdomen and pelvis was performed after oral and IV contrast administration. Coronal and sagittal reconstructed images were obtained. Lung bases demonstrate no pleural fluid, nodules or masses. Heart is of normal size without evidence of pericardial effusion. Liver is normal in size. No focal lesions or intrahepatic ductal dilatation is noted. The gallbladder demonstrates no calcified gallstones. No pericholecystic fluid or wall thickening is noted. The pancreas demonstrates no mass or pancreatic ductal dilatation. The spleen is normal in size. No adrenal masses are noted. The kidneys demonstrate symmetric nephrograms. No hydronephrosis in either kidney is noted. CT of the pelvis demonstrates no retroperitoneal or pelvic lymphadenopathy. Myomatous changes of the uterus are noted. The right ovary demonstrate follicular cysts in the right ovary. Left ovary is grossly unremarkable. Appendix is visualized. It is of normal caliber with air within the lumen. The uterus is grossly unremarkable.. A small amount of free fluid is noted in the cul-de-sac. IMPRESSION: No obstructive uropathy is noted. Normal-appearing appendix. Trace amount of free fluid noted in the cul-de-sac.
--- NOTE | 2018-03-09 08:47 | RAD ---
Indication: Sepsis. Single frontal view of the chest performed at 0033 hours was reviewed. Comparison is made with previous exam dated January 19, 2015. No mediastinal shift is noted. Heart is of normal size and configuration. Lung verduzco appear clear. IMPRESSION: NO ACTIVE CARDIOPULMONARY DISEASE IS NOTED.
[2018-03-09] MEDS ORDERED: Vancomycin(*) 1,000 MG in NS 0.9% 250 ML* 250 ML IVPB SCH (09:00)
[2018-03-09] MEDS ORDERED: Clindamycin 900 MG IVPREMIX(* 900 MG/50 ML SDV IV SCH (10:30)
--- NOTE | 2018-03-09 12:02 | PN ---
Subjective Date of Service: 03/09/18 Interval History: pt's headache is gone. Has been getting migraines since 3rd grade, aprox 3x/a week. Never used preventive tx Has had occasional R flank pain, but none today Objective Active Medications: Acetaminophen (Tylenol Tab*) 650 mg PO Q6H PRN PRN Reason: FEVER/PAIN Last Admin: 03/09/18 06:59 Dose: 650 mg Acetaminophen/Butalbital/Caffeine (Fioricet Tab*) 1 tab PO Q6H PRN PRN Reason: HEADACHE Albuterol (Ventolin 2.5 Mg/3 Ml Neb.Alycia*) 2.5 mg INH Q2H PRN PRN Reason: SOB/WHEEZING Clindamycin HCl/Dextrose (Cleocin 900 Mg Ivpremix (*) Sdv) 900 mg in 50 mls @ 100 mls/hr IV Q8H [facility] Last Admin: 03/09/18 11:04 Dose: 100 mls/hr Sodium Chloride (Ns 0.9% 1000 Ml*) 1,000 mls @ 125 mls/hr IV PER RATE [facility] Vancomycin HCl 1,000 mg/ (Sodium Chloride) 250 mls @ 166.667 mls/hr IVPB Q6H [facility] Last Admin: 03/09/18 08:24 Dose: 166.667 mls/hr Melatonin (Melatonin) 3 mg PO BEDTIME PRN; Protocol PRN Reason: Sleep Omeprazole (Prilosec Cap*) 20 mg PO DAILY@0600 [facility] Last Admin: 03/09/18 06:23 Dose: 20 mg Ondansetron HCl (Zofran Odt Tab*) 4 mg PO Q6H PRN PRN Reason: n/v Last Admin: 03/09/18 03:38 Dose: 4 mg Pharmacy Consult (Vancomycin Per Pharmacy*) 1 note FOLLOW UP .VANC PER PHARMACY [facility] Pharmacy Profile Note (Vancomycin Trough Check) 1 note FOLLOW UP 0830 ONE Stop: 03/10/18 08:31 Vital Signs - 8 hr 03/09/18 03/09/18 07:44 08:00 Temperature 98.0 F Pulse Rate 65 Respiratory 18 16 Rate Blood Pressure 100/59 (mmHg) O2 Sat by Pulse 97 Oximetry Oxygen Devices in Use Now: None Appearance: 28 yo f in nAD, AAOx3 Eyes: No Scleral Icterus, PERRLA Ears/Nose/Mouth/Throat: NL Teeth, Lips, Gums, Mucous Membranes Moist Neck: NL Appearance and Movements; NL JVP, Trachea Midline Respiratory: Symmetrical Chest Expansion and Respiratory Effort, Clear to Auscultation Cardiovascular: NL Sounds; No Murmurs; No JVD, RRR Abdominal: NL Sounds; No Tenderness; No Distention Lymphatic: No Cervical Adenopathy Extremities: No Edema, No Clubbing, Cyanosis Skin: No Rash or Ulcers, No Nodules or Sclerosis, - - multiple skin piercings and tatoos inspected-no evidence of infection Neurological: Alert and Oriented x 3, NL Muscle Strength and Tone Result Diagrams: 03/09/18 07:18 03/09/18 07:18 Additional Lab and Data: Lab Results 03/08/18 03/08/18 03/09/18 Range/Units 19:54 19:54 00:24 WBC 20.6 H (3.5-10.8) 10^3/ul RBC 4.28 (4.00-5.40) 10^6/ul Hgb 12.8 (12.0-16.0) g/dl Hct 39 (35-47) % MCV 91 (80-97) fL MCH 30 (27-31) pg MCHC 33 (31-36) g/dl RDW 15 (10.5-15) % Plt Count 308 (150-450) 10^3/ul MPV 7.9 (7.4-10.4) um3 Neut % (Auto) 87.0 H (38-83) % Lymph % (Auto) 8.2 L (25-47) % [place] % (Auto) 4.2 (0-7) % Eos % (Auto) 0.2 (0-6) % Baso % (Auto) 0.4 (0-2) % Absolute Neuts (auto) 17.9 H (1.5-7.7) 10^3/ul Absolute Lymphs (auto) 1.7 (1.0-4.8) 10^3/ul Absolute Monos (auto) 0.9 H (0-0.8) 10^3/ul Absolute Eos (auto) 0 (0-0.6) 10^3/ul Absolute Basos (auto) 0.1 (0-0.2) 10^3/ul Absolute Nucleated RBC 0 10^3/ul Nucleated RBC % 0 APTT (26.0-36.3) seconds Sodium 138 (135-145) mmol/L Potassium 4.1 (3.5-5.0) mmol/L Chloride 103 (101-111) mmol/L Carbon Dioxide 26 (22-32) mmol/L Anion Gap 9 (2-11) mmol/L BUN 13 (6-24) mg/dL Creatinine 0.80 (0.51-0.95) mg/dL Est GFR ( Amer) 104.9 (>60) Est GFR (Non-Af Amer) 86.7 (>60) BUN/Creatinine Ratio 16.3 (8-20) Glucose 174 H (70-100) mg/dL Lactic Acid (0.5-2.0) mmol/L Calcium 9.7 (8.6-10.3) mg/dL Total Bilirubin 0.40 (0.2-1.0) mg/dL AST 25 (13-39) U/L ALT 20 (7-52) U/L Alkaline Phosphatase 84 (34-104) U/L Troponin I 0.00 (<0.04) ng/mL Total Protein 7.6 (6.4-8.9) g/dL Albumin 4.6 (3.2-5.2) g/dL Globulin 3.0 (2-4) g/dL Albumin/Globulin Ratio 1.5 (1-3) Beta HCG, Quant < 0.60 mIU/mL Urine Color Yellow Urine Appearance Clear Urine pH 6.0 (5-9) Ur Specific [place] > 1.060 H (1.010-1.030) Urine Protein Negative (Negative) Urine Ketones Negative (Negative) Urine Blood Negative (Negative) Urine Nitrate Negative (Negative) Urine Bilirubin Negative (Negative) Urine Urobilinogen Negative (Negative) Ur Leukocyte Esterase Negative (Negative) Urine Glucose Negative (Negative) 18 03/09/18 Range/Units 01:33 01:33 WBC (3.5-10.8) 10^3/ul RBC (4.00-5.40) 10^6/ul Hgb (12.0-16.0) g/dl Hct (35-47) % MCV (80-97) fL MCH (27-31) pg MCHC (31-36) g/dl RDW (10.5-15) % Plt Count (150-450) 10^3/ul MPV (7.4-10.4) um3 Neut % (Auto) (38-83) % Lymph % (Auto) (25-47) % [place] % (Auto) (0-7) % Eos % (Auto) (0-6) % Baso % (Auto) (0-2) % Absolute Neuts (auto) (1.5-7.7) 10^3/ul Absolute Lymphs (auto) (1.0-4.8) 10^3/ul Absolute Monos (auto) (0-0.8) 10^3/ul Absolute Eos (auto) (0-0.6) 10^3/ul Absolute Basos (auto) (0-0.2) 10^3/ul Absolute Nucleated RBC 10^3/ul Nucleated RBC % APTT 30.0 (26.0-36.3) seconds Sodium (135-145) mmol/L Potassium (3.5-5.0) mmol/L Chloride (101-111) mmol/L Carbon Dioxide (22-32) mmol/L Anion Gap (2-11) mmol/L BUN (6-24) mg/dL Creatinine (0.51-0.95) mg/dL Est GFR ( Amer) (>60) Est GFR (Non-Af Amer) (>60) BUN/Creatinine Ratio (8-20) Glucose (70-100) mg/dL Lactic Acid 0.9 (0.5-2.0) mmol/L Calcium (8.6-10.3) mg/dL Total Bilirubin (0.2-1.0) mg/dL AST (13-39) U/L ALT (7-52) U/L Alkaline Phosphatase (34-104) U/L Troponin I (<0.04) ng/mL Total Protein (6.4-8.9) g/dL Albumin (3.2-5.2) g/dL Globulin (2-4) g/dL Albumin/Globulin Ratio (1-3) Beta HCG, Quant mIU/mL Urine Color Urine Appearance Urine pH (5-9) Ur Specific [place] (1.010-1.030) Urine Protein (Negative) Urine Ketones (Negative) Urine Blood (Negative) Urine Nitrate (Negative) Urine Bilirubin (Negative) Urine Urobilinogen (Negative) Ur Leukocyte Esterase (Negative) Urine Glucose (Negative) Microbiology and Other Data: Microbiology 03/09/18 03:03 Gard[place]rella DNA Probe - Final Vaginal Negative Gard[place]rella Negative Ange Assess/Plan/Problems-Billing Assessment: 28 yo F with h/o recurrent migraines took Suboxone from a friend for headache and developed hypothermia and hypotension. Is currently menstruating and a tampon was noted on CT. Pt stated that she changes them regularly severe times a day - Patient Problems (1) Sepsis Comment: suspected TSS cont clinda/Zosyn , await blood cx results. will call [facility] [employer] and ask fo consult (2) Migraines Comment: chronic. Informed pt of need of f/u with neurology. start amitriptyline (3) DVT prophylaxis Comment: low risk, ambulation Status and Disposition: inpatient
--- NOTE | 2018-03-09 12:47 | RAD ---
Indication: Ovarian torsion. Real-time sonography of the pelvis was performed less than transabdominal technique. The uterus measures 8.4 x 4.2 x 5.2 cm. Endometrial echo measures 10 mm. The right ovary measures 3.6 x 2.8 x 4.2 cm. The left ovary measures 4.4 x 2.7 x 2.9 cm. No adnexal masses are noted. IMPRESSION: Unremarkable pelvic ultrasound.
[2018-03-09] MEDS ORDERED: Mouth Piece, Nicotine* 1 EACH CARTRIDGE INH PRN ×2 (13:26)
[2018-03-09] MEDS ORDERED: Nicotine Inhaler* 10 MG AMP INH PRN (13:26)
[2018-03-09 13:33] VITALS: BP 95/46
[2018-03-09] MEDS ORDERED: Nicotine PATCH 21 MG/24 HR* PATCH TRANSDERM SCH (14:00)
--- NOTE | 2018-03-09 14:43 | CONSULT ---
Consult Consult: Consultation report [facility] Dr Ulysses Adams. Mrs. Timo Jeffries is a 28 y/o lady with a lmp that started . She was admitted by the hospitalist service on 03/08/18 with a diagnosis of toxic shock syndrome based on her clinical signs, symptoms and history/ presentation. I was asked to consult on her care an offer my opinion from a gynecologic perspective. 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 Denies GC/CT , or blood borne std's. Ob Hx 2 Ft Sections 2 Spontaneous misscarriages SHx lives with and 2 children 1/2 PPD cigarettes, admits to casual ETOH and Marijuana use, no other illicit drugs. Fhx Non-contributory Meds Fioricet with codeine prn headaches Allergies Morphine and latex Hospital Meds: Active Medications Generic Name Dose Route Start Last Admin Trade Name Freq PRN Reason Stop Dose Admin Acetaminophen 650 mg 03/09/18 02:30 03/09/18 06:59 Tylenol Tab* PO 650 mg Q6H PRN Administration FEVER/PAIN Acetaminophen/Butalbital/Caffeine 1 tab 03/09/18 03:00 Fioricet Tab* PO Q6H PRN HEADACHE Albuterol 2.5 mg 03/09/18 02:30 Ventolin 2.5 Mg/3 Ml Neb.Alycia* INH Q2H PRN SOB/WHEEZING Amitriptyline HCl 10 mg 03/09/18 21:00 Elavil Tab* PO BEDTIME NILDA Device 1 each 03/09/18 13:26 03/09/18 13:56 Nicotine Mouth Piece* INH 1 each .USE WITH NICOTROL PRN Administration CRAVING Clindamycin HCl/Dextrose 900 mg in 50 mls @ 100 mls/hr 03/09/18 10:30 11:04 Cleocin 900 Mg Ivpremix (*) Sdv IV 100 mls/hr Q8H NILDA Administration Vancomycin HCl 1,000 mg/ 250 mls @ 166.667 mls/hr 03/09/18 09:00 03/09/18 08: 24 Sodium Chloride IVPB 166.667 mls/hr Q6H NILDA Administration Melatonin 3 mg 03/09/18 02:52 Melatonin PO BEDTIME PRN Sleep Protocol Nicotine 10 mg 03/09/18 13:26 03/09/18 13:55 Nicotine Inhaler* INH 10 mg Q2H PRN Administration CRAVING Nicotine 1 patch 03/09/18 14:00 03/09/18 13:58 Nicotine Patch 21 Mg/24 Hr* TRANSDERM 1 patch DAILY NILDA Administration Omeprazole 20 mg 03/09/18 06:00 03/09/18 06:23 Prilosec Cap* PO 20 mg DAILY@0600 NILDA Administration Ondansetron HCl 4 mg 03/09/18 02:55 03/09/18 03:38 Zofran Odt Tab* PO 4 mg Q6H PRN Administration n/v Pharmacy Consult 1 note 03/09/18 03:00 Vancomycin Per Pharmacy* FOLLOW UP .VANC PER PHARMACY [facility] Pharmacy Profile Note 1 note 03/10/18 08:30 Vancomycin Trough Check FOLLOW UP 03/10/18 08:31 0830 ONE ROS. Patient today denies abdominal/pelvic pain, admits to bloating, denies fever/chills, nausea/ vomiting, Urinary symptoms, vaginal bleeding is scant. Denies chest pain , shortness of breath. Admits she is hungry and would like to smoke. Past-- denies vaginal discharge, dysmenorrhea, dyspareunia, abnormal uterine bleeding or chronic pelvic pain. Physical Exam: Vital Signs - 24 hr 03/08/18 03/08/18 03/08/18 18:55 19:18 19:25 Temperature 96.9 F Pulse Rate 78 74 64 Respiratory 14 Rate Blood Pressure 134/93 112/74 (mmHg) O2 Sat by Pulse 97 97 88 Oximetry 03/08/18 03/08/18 03/08/18 19:55 20:00 20:24 Temperature Pulse Rate 58 55 62 Respiratory Rate Blood Pressure 99/45 98/53 (mmHg) O2 Sat by Pulse 92 98 98 Oximetry 03/08/18 03/08/18 03/08/18 20:54 21:00 21:25 Temperature Pulse Rate 59 55 57 Respiratory Rate Blood Pressure 99/54 110/59 (mmHg) O2 Sat by Pulse 98 99 89 Oximetry 03/08/18 03/08/18 03/08/18 21:55 22:00 22:25 Temperature Pulse Rate 64 75 54 Respiratory Rate Blood Pressure 124/85 99/47 (mmHg) O2 Sat by Pulse 100 100 99 Oximetry 03/08/18 03/08/18 03/08/18 22:54 22:57 23:00 Temperature Pulse Rate 82 75 72 Respiratory Rate Blood Pressure 112/72 (mmHg) O2 Sat by Pulse 98 99 97 Oximetry 03/09/18 03/09/18 03/09/18 00:55 01:45 01:46 Temperature Pulse Rate 72 69 Respiratory Rate Blood Pressure 93/58 120/77 (mmHg) O2 Sat by Pulse 99 100 Oximetry 03/09/18 03/09/18 03/09/18 01:54 02:00 03:13 Temperature Pulse Rate 65 78 86 Respiratory Rate Blood Pressure 110/72 137/81 (mmHg) O2 Sat by Pulse 99 99 Oximetry 03/09/18 03/09/18 03/09/18 03:36 03:49 03:54 Temperature 97.6 F 98.6 F 98.6 F Pulse Rate 84 86 86 Respiratory 16 12 16 Rate Blood Pressure 125/74 137/81 137/81 (mmHg) O2 Sat by Pulse 100 99 99 Oximetry 03/09/18 03/09/18 03/09/18 07:44 08:00 11:58 Temperature 98.0 F 98.6 F Pulse Rate 65 78 Respiratory 18 16 18 Rate Blood Pressure 100/59 95/46 (mmHg) O2 Sat by Pulse 97 96 Oximetry Patient is AAOx3 in no distress. Lungs CTA b/l, no CVA tenderness noted CV RRR no abnormal heart sounds Abdomen is soft, distended with normal bowel sounds, no tenderness, rebound , guarding and no hepatosplenomegally noted. Pelvic exam deferred. Labs: Laboratory Last Values WBC 12.2 10^3/ul (3.5-10.8) H 03/09/18 07:18 RBC 3.47 10^6/ul (4.00-5.40) L 03/09/18 07:18 Hgb 10.4 g/dl (12.0-16.0) L 03/09/18 07:18 Hct 32 % (35-47) L 03/09/18 07:18 MCV 91 fL (80-97) 03/09/18 07:18 MCH 30 pg (27-31) 03/09/18 07:18 MCHC 33 g/dl (31-36) 03/09/18 07:18 RDW 14 % (10.5-15) 03/09/18 07:18 Plt Count 224 10^3/ul (150-450) 03/09/18 07:18 MPV 8.4 um3 (7.4-10.4) 03/09/18 07:18 Neut % (Auto) 70.2 % (38-83) 03/09/18 07:18 Lymph % (Auto) 22.6 % (25-47) L 03/09/18 07:18 [place] % (Auto) 6.7 % (0-7) 03/09/18 07:18 Eos % (Auto) 0.4 % (0-6) 03/09/18 07:18 Baso % (Auto) 0.1 % (0-2) 03/09/18 07:18 Absolute Neuts (auto) 8.5 10^3/ul (1.5-7.7) H 03/09/18 07:18 Absolute Lymphs (auto) 2.8 10^3/ul (1.0-4.8) 03/09/18 07:18 Absolute Monos (auto) 0.8 10^3/ul (0-0.8) 03/09/18 07:18 Absolute Eos (auto) 0 10^3/ul (0-0.6) 03/09/18 07:18 Absolute Basos (auto) 0 10^3/ul (0-0.2) 03/09/18 07:18 Absolute Nucleated RBC 0 10^3/ul 03/09/18 07:18 Nucleated RBC % 0 03/09/18 07:18 APTT 30.0 seconds (26.0-36.3) 03/09/18 01:33 Sodium 137 mmol/L (135-145) 03/09/18 07:18 Potassium 4.0 mmol/L (3.5-5.0) 03/09/18 07:18 Chloride 106 mmol/L (101-111) 03/09/18 07:18 Carbon Dioxide 24 mmol/L (22-32) 03/09/18 07:18 Anion Gap 7 mmol/L (2-11) 03/09/18 07:18 BUN 8 mg/dL (6-24) 03/09/18 07:18 Creatinine 0.63 mg/dL (0.51-0.95) 03/09/18 07:18 Est GFR ( Amer) 138.2 (>60) 03/09/18 07:18 Est GFR (Non-Af Amer) 114.2 (>60) 03/09/18 07:18 BUN/Creatinine Ratio 12.7 (8-20) 03/09/18 07:18 Glucose 92 mg/dL (70-100) 03/09/18 07:18 Lactic Acid 0.7 mmol/L (0.5-2.0) 03/09/18 07:18 Calcium 8.1 mg/dL (8.6-10.3) L 03/09/18 07:18 Total Bilirubin 0.40 mg/dL (0.2-1.0) 03/08/18 19:54 AST 25 U/L (13-39) 03/08/18 19:54 ALT 20 U/L (7-52) 03/08/18 19:54 Alkaline Phosphatase 84 U/L (34-104) 03/08/18 19:54 Total Creatine Kinase 476 U/L (10-223) H 03/09/18 07:18 Troponin I 0.00 ng/mL (<0.04) 03/08/18 19:54 Total Protein 7.6 g/dL (6.4-8.9) 03/08/18 19:54 Albumin 4.6 g/dL (3.2-5.2) 03/08/18 19:54 Globulin 3.0 g/dL (2-4) 03/08/18 19:54 Albumin/Globulin Ratio 1.5 (1-3) 03/08/18 19:54 Beta HCG, Quant < 0.60 mIU/mL 03/08/18 19:54 Urine Color Yellow 03/09/18 00:24 Urine Appearance Clear 03/09/18 00:24 Urine pH 6.0 (5-9) 03/09/18 00:24 Ur Specific [place] > 1.060 (1.010-1.030) H 03/09/18 00:24 Urine Protein Negative (Negative) 03/09/18 00:24 Urine Ketones Negative (Negative) 03/09/18 00:24 Urine Blood Negative (Negative) 03/09/18 00:24 Urine Nitrate Negative (Negative) 03/09/18 00:24 Urine Bilirubin Negative (Negative) 03/09/18 00:24 Urine Urobilinogen Negative (Negative) 03/09/18 00:24 Ur Leukocyte Esterase Negative (Negative) 03/09/18 00:24 Urine Glucose Negative (Negative) 03/09/18 00:24 CBC consistent with anemia, improving WBC. P33 WNL, UA wnl, SMA7 wnl, Hcg negative Ultrasound of the pelvis is normal, unremarkable findings. I/P I have reviewed the patients history of present illness, presenting s/sx, imaging, labs and vital signs along with treatment. Patients presentation is unusual, however, most consistent with current diagnosis. This past cycle is unusually long and this can be addressed as an outpatient. If any suspicion of PID, I believe she is being covered with current antibiotic regimen with improving signs/symptoms. I would only recommend considering Doxycycline 100mg PO BID for total 7days on discharge. The patient can call my office and schedule an appointment in 4 weeks for follow up, sooner if her symptoms return. Thank you for allowing me to participate in the patients care. Ulysses Adams M.D.
[2018-03-09] MEDS ORDERED: Amitriptyline TAB* 10 MG PO SCH (21:00)
--- NOTE | 2018-03-09 21:23 | DS ---
CC: Jim Douglas NP; Dr. Ulysses Adams * DISCHARGE SUMMARY AGAINST MEDICAL ADVICE: DATE OF ADMISSION: 03/09/18 DATE OF DISCHARGE: 03/09/18 Please note that the patient is being discharged against medical advice. PRIMARY CARE PROVIDER: Jim Douglas NP DISCHARGE DIAGNOSIS: Sepsis, suspected toxic shock syndrome. SECONDARY DIAGNOSIS: History of migraines. MEDICATIONS AT DISCHARGE: Include: 1. Amitriptyline 10 mg p.o. nightly for migraine prophylaxis that was started during the patient's hospital stay. 2. Doxycycline 100 mg p.o. b.i.d. for a total of 14 days. CONSULTATIONS DURING THE HOSPITAL STAY: Included Dr. Adams from [facility]. LABORATORY DATA: Labs pending at the time of dictation include blood cultures. HOSPITALIZATION COURSE: Mrs. Greenwood is a 28-year-old female who presented to the hospital hypotensive, hypothermic after she took Suboxone for migraine headache. She had a tampon retained in her vagina and it was felt that the patient may have had toxic shock syndrome. She was admitted and placed on broad spectrum antibiotics including Zosyn and clindamycin. She stabilized very quickly and after intravenous fluid hydration and fluid boluses, blood pressures stabilized and her hypothermia resolved. Her marked leukocytosis went down from 20,000 to 12,000 within 12 hours. The patient was advised to stay in the hospital until her blood cultures result which is 24 hours, to plan further treatment. Dr. Adams saw the patient in consultation from Obstetrics and Gynecology and recommended treating her with doxycycline as the patient had PID. She did not have a gynecological exam. At this point, the patient feels much better and she requested to go home. Once again, I told the patient it is not safe for her to go home before her blood cultures result in case she needed to continue her IV antibiotics. The patient requested to leave against medical advice. At this point, I will prescribe her doxycycline 100 mg p.o. b.i.d. that would treat pelvic inflammatory disease and hopefully any staph or streptococcal infection that would be present. The patient notes that she may need to come back to the hospital if her blood cultures are positive for further treatment. The patient is recommended to follow up with Dr. Adams as well as the patient' s primary care provider in approximately 1 to 2 weeks. The patient also was started on amitriptyline for migraine prophylaxis. Physical exam at discharge is unchanged from daily progress notes. [id number]/[facility] #: [id number] VAMSID
[2018-03-10] MEDS ORDERED: Vancomycin Trough Check NOTE FOLLOW UP ONE (08:30)
== END 2018-03-09 15:30 | disposition left against medical advice (07) | DRG 720 ==
LOC: ED 18:41 → MED 03-09 01:54
PROVIDERS: ADMIT Hospitalist; ATTEND Internal Medicine
DX: A48.3 Toxic shock syndrome (principal); G43.909 Migraine, unspecified, not intractable, without status migrainosus; J45.909 Unspecified asthma, uncomplicated; F41.9 Anxiety disorder, unspecified; F32.9 Major depressive disorder, single episode, unspecified; R00.1 Bradycardia, unspecified; K58.9 Irritable bowel syndrome, unspecified; E28.2 Polycystic ovarian syndrome; F17.210 Nicotine dependence, cigarettes, uncomplicated; R65.20 Severe sepsis without septic shock; M41.9 Scoliosis, unspecified; F12.90 Cannabis use, unspecified, uncomplicated; Z87.42 Personal history of other diseases of the female genital tract; Z88.5 Allergy status to narcotic agent; Z91.040 Latex allergy status; Z72.89 Other problems related to lifestyle
CPT/HCPCS: 36415; 71045; 74177; 76856; 80048; 80053; 81003; 82550; 83605; 84484; 84702; 85025; 85730; 87040; 87480; 87491; 87510; 87591; 87661; 93005; 99285; 99406; A9270-GY; J2543; J2765; J3370; Q9967

== ENCOUNTER 2018-03-11 01:38 | Emergency (ER) | payer MEDICAID ==
[2018-03-11] MEDS ORDERED: NS 0.9% 1000 ML* 1,000 ML IV ONE (02:28)
[2018-03-11] MEDS ORDERED: Ketorolac INJ* 30 MG/ML 1 ML VIAL IV PUSH ONE (02:29)
[2018-03-11] MEDS ORDERED: Metoclopramide IV* 5 MG/ML 2 ML VIAL IV SLOW PU ONE (02:29)
[2018-03-11 02:59] LABS: ABS Basophils 0.1 10^3/ul (0-0.2); ABS Eosinophils 0.1 10^3/ul (0-0.6); ABS Lymphocytes 3.2 10^3/ul (1.0-4.8); ABS Monocytes 0.6 10^3/ul (0-0.8); ABS Neutrophils 4.1 10^3/ul (1.5-7.7); ABS Nucleated RBC 0 10^3/ul; Eosinophil % 1.5 % (0-6); Hematocrit 37 % (35-47); Hemoglobin 12.5 g/dl (12.0-16.0); Lymphocyte % 40.2 % (25-47); Mean Corpuscular HGB Conc 34 g/dl (31-36); Mean Corpuscular Hemoglobin 31 pg (27-31); Mean Corpuscular Volume 91 fL (80-97); Mean Platelet Volume 7.8 um3 (7.4-10.4); Nucleated Red Blood Cells % 0; Platelet Count 263 10^3/ul (150-450); Red Blood Count 4.05 10^6/ul (4.00-5.40); Red Cell Distribution Width 14 % (10.5-15)
[2018-03-11 03:17] LABS: EGFR Non-African American 80.8 (>60)
[2018-03-11] MEDS ORDERED: Potassium Chlor TAB* 20 MEQ TAB.ER PO ONE (03:30)
[2018-03-11 03:47] LABS: Urine Appearance Clear; Urine Blood 2+ (Negative); Urine Color Straw; Urine Ketones Negative (Negative); Urine Protein Negative (Negative); Urine Specific Gravity 1.005 (1.010-1.030); Urine Urobilinogen Negative (Negative)
--- NOTE | 2018-03-11 04:30 | ED ---
Devon Mclaughlin Jade, scribed for Avis Mann MD on 03/11/18 at 0229 . Complex/Multi-Sys Presentation - HPI Summary HPI Summary: Pt is a 28 y/o female who presents to the ED s/p toxic shock syndrome. She was admitted to [facility] a few days ago for TSS, and left AMA 2 days ago. Pt continued Doxycycline after leaving [facility]. She c/o SOB, dyspnea when lying flat, abdominal pain, back pain, CP to touch, muscle ache, fatigue, and extremity swelling. Pt states she passed a lump of tissue through her vagina. She had a normal BM today. - History Of Current Complaint Chief Complaint: EDAbdPain Time Seen by Provider: 03/11/18 02:11 Hx Obtained From: Patient Onset/Duration: Gradual Onset, Lasting Days - 3, Still Present Timing: Constant Aggravating Factor(s): Leaving [facility] AMA Associated Signs And Symptoms: Positive: Weakness, SOB, Abdominal Pain, Back Pain - Allergies/Home Medications Allergies/Adverse Reactions: Allergies Allergy/AdvReac Type Severity Reaction Status Date / Time latex Allergy Unknown Verified 03/08/18 18:59 Reaction Details morphine Allergy Unknown Verified 03/08/18 18:59 Reaction Details PMH/Surg Hx/FS Hx/Imm Hx Endocrine/Hematology History: Reports: Hx Anemia Denies: Hx Anticoagulant Therapy, Hx Diabetes, Hx Thyroid Disease Cardiovascular History: Denies: Hx Hypertension, Hx Pacemaker/ICD Respiratory History: Reports: Hx Asthma Denies: Hx Chronic Obstructive Pulmonary Disease (COPD) History: Denies: Hx Renal Disease Sensory History: Reports: Hx Contacts or Glasses Denies: Hx Hearing Aid Opthamlomology History: Reports: Hx Contacts or Glasses Neurological History: Denies: Hx Dementia, Hx Seizures Psychiatric History: Reports: Hx Anxiety, Hx Depression Denies: Hx Panic Disorder, Hx Substance Abuse - Surgical History Surgery Procedure, Year, and Place: C SECTION 6 MOS AGO, UTERINE POLYP REMOVAL - Immunization History Date of Tetanus Vaccine: up to date per pt Infectious Disease History: No Infectious Disease History: Denies: Hx Hepatitis, Hx Human Immunodeficiency Virus (HIV), Traveled Outside the [place] in Last 30 Days - Family History Known Family History: Negative: Blood Disorder - Social History Alcohol Use: Occasionally Substance Use Type: Reports: None Smoking Status (MU): Heavy Every Day Tobacco Smoker Type: Cigarettes Have You Smoked in the Last Year: Yes Review of Systems Positive: Fatigue Positive: Shortness Of Breath - Worse when lying flat Positive: Abdominal Pain Positive: Myalgia, Edema - Extremity, Other - Back pain, chest pain to touch All Other Systems Reviewed And Are Negative: Yes Physical Exam - Summary Physical Exam Summary: VITAL SIGNS: Reviewed. GENERAL: Patient is a well-developed and nourished FEMALE who is lying comfortable in the stretcher. Patient is not in any acute respiratory distress. HEAD AND FACE: No signs of trauma. No ecchymosis, hematomas or skull depressions. No sinus tenderness. EYES: PERRLA, EOMI x 2, No injected conjunctiva, no nystagmus. EARS: Hearing grossly intact. Ear canals and tympanic membranes are within normal limits. MOUTH: Oropharynx within normal limits. NECK: Supple, trachea is midline, no adenopathy, no JVD, no carotid bruit, no c- spine tenderness, neck with full ROM. CHEST: Symmetric, no tenderness at palpation LUNGS: Clear to auscultation bilaterally. No wheezing or crackles. CVS: Regular rate and rhythm, S1 and S2 present, no murmurs or gallops appreciated. ABDOMEN: Soft, non-tender. No rebound no guarding, and no masses palpated. Bowel sounds are normal. Mild abdominal distention. EXTREMITIES: FROM in all major joints, no edema, no cyanosis or clubbing. NEURO: Alert and oriented x 3. No acute neurological deficits. Speech is normal and follows commands. SKIN: Dry and warm Triage Information Reviewed: Yes Vital Signs On Initial Exam: Initial Vitals Temp Pulse Resp BP Pulse Ox 98.4 F 73 16 139/87 100 03/11/18 01:43 03/11/18 01:43 03/11/18 01:43 03/11/18 01:43 03/11/18 01:43 Vital Signs Reviewed: Yes Diagnostics - Vital Signs Vital Signs Temp Pulse Resp BP Pulse Ox 03/11/18 01:43 98.4 F 73 16 139/87 100 - Laboratory Result Diagrams: 03/11/18 02:52 03/11/18 02:52 Lab Statement: Any lab studies that have been ordered have been reviewed, and results considered in the medical decision making process. Re-Evaluation - Re-Evaluation First Eval Re-Evaluation Time: 03:57 Change: Improved Comment: Pt feels better. Complex Multi-Symp Course/Dx Course Of Treatment: Pt is a 28 y/o female who was admitted to [facility] a few days ago for TSS, and left AMA. She c/o SOB, dyspnea when lying flat, abdominal pain , back pain, CP to touch, muscle ache, fatigue, and extremity swelling. Pt states she passed a lump of tissue through her vagina. A physical exam revealed mild abdominal distention. A re-eval at 3:57 showed the pt feeling better. Final dx is abdominal pain. Pt is discharged home and is agreeable with this plan. - Diagnoses Provider Diagnoses: Abdominal pain Discharge - Sign-Out/Discharge Documenting (check all that apply): Discharge/Admit/Transfer - Discharge - Discharge Plan Condition: Stable Disposition: HOME Patient Education Materials: Abdominal Pain (ED) Referrals: Jim Douglas, POWER TECHNICIAN [Primary Care Provider] - 2 Days Additional Instructions: RETURN TO THE EMERGENCY DEPARTMENT FOR CHANGING OR WORSENING SYMPTOMS The documentation as recorded by the Devon hopper Jade accurately reflects the service I personally performed and the decisions made by me, Avis Mann MD.
[2018-03-11 04:48] VITALS: BP 120/79
== END 2018-03-11 04:30 | disposition home or self-care (01) ==
LOC: ED 01:38
DX: R10.9 Unspecified abdominal pain (principal); R14.0 Abdominal distension (gaseous); R06.02 Shortness of breath; R07.9 Chest pain, unspecified; M54.9 Dorsalgia, unspecified; F17.210 Nicotine dependence, cigarettes, uncomplicated; Z86.19 Personal history of other infectious and parasitic diseases; Z88.5 Allergy status to narcotic agent
CPT/HCPCS: 36415; 80053; 81003; 81015; 82150; 83605; 83690; 83735; 84702; 85025; 86140; 87086; 96361; 96374; 96375; 99282; A9270-GY; J1885; J2765

== ENCOUNTER 2018-05-23 09:50 | Day surgery (SDC) | payer MEDICAID, OTHER ==
[~2018-05-23 09:50] MED LIST changes: +Buffered Lidocaine 0.9% SYRIN* 5 ML/SYR SYRINGE INTRADERM ONE; +Dexamethasone IV* 4 MG/ML 1 ML (4 MG) IV SLOW PU ONE; +Famotidine IV* 10 MG/ML 2 ML (20 mg) IV ONE; -Sodium Citrate/Citric Acid* 15 ML UDC PO ONE
[2018-05-23] MEDS ORDERED: Famotidine IV* 10 MG/ML 2 ML (20 mg) ONE (10:32)
[2018-05-23] MEDS ORDERED: Dexamethasone IV* 4 MG/ML 1 ML (4 MG) ONE (10:32)
[2018-05-23] MEDS ORDERED: Midazolam* 1 MG/ML 2 ML VIAL (2 MG) ONE (11:09)
[2018-05-23] MEDS ORDERED: fentaNYL* 50 MCG/ML 2 ML VIAL (100 MCG VIAL) ONE (11:09)
[2018-05-23] MEDS ORDERED: Naloxone* 0.4 MG/ML 1 ML VIAL IV PRN (12:43)
[2018-05-23] MEDS ORDERED: Ondansetron INJ* 2 MG/ML VIAL IV PRN (12:43)
[2018-05-23] MEDS ORDERED: fentaNYL* 50 MCG/ML 2 ML VIAL (100 MCG VIAL) IV PRN (12:43)
[2018-05-23] MEDS ORDERED: Meperidine Carpuject* 75 MG/ML CARPUJECT SYRINGE IV ONE (13:00)
[2018-05-23] MEDS ORDERED: HYDROcodone/ACET. 7.5/325 LIQ* 15 ML UDC ONE (13:26)
[2018-05-23 13:30] VITALS: BP 121/85
--- NOTE | 2018-05-24 08:51 | OP ---
DATE OF OPERATION: 05/23/18 - [facility] DATE OF : 89 SURGEON: Rigo Saenz MD. PULVERIZER FEEDER: None. ANESTHESIA: General. PRE-OP DIAGNOSIS: Chronic tonsillitis. POST-OP DIAGNOSIS: Chronic tonsillitis. OPERATIVE PROCEDURE: Tonsillectomy. ESTIMATED BLOOD LOSS: Negligible. SPECIMENS: Right and left tonsils to Pathology. INDICATION: This is a 28-year-old woman who has had problems with recurrent acute tonsillitis for approximately one year. The decision was made to proceed with elective tonsillectomy. DESCRIPTION OF PROCEDURE: On 05/23/18, the patient was brought to the operating room. General anesthesia was induced and the patient was orally intubated. A time-out was performed. The patient was draped and the procedure was initiated. A McIvor mouth gag was used to facilitate exposure of the oropharynx. It was suspended from the Pang stand. The right tonsil was addressed first. It was grasped with a straight Allis forceps, retracted medially, and dissected free of its fossa with the Coblation device at a setting of 7 and 3. There was minimal bleeding. The left tonsil was removed in an identical fashion, again utilizing the coblation device at a setting of 7 and 3. Once the tonsils were out, the superior and inferior pole regions were prophylactically cauterized with bipolar function at a setting of 5. The mouth gag was then let down for a period of a minute. It was opened again. The tonsillar fossae were inspected. There was no evidence of active bleeding. An orogastric tube was passed into the stomach and the stomach contents were evacuated. The patient was then returned to the care of the anesthesiologist, extubated, and delivered to the PACU in stable condition. [id number] #: [id number] MTDD
== END 2018-05-23 14:25 | disposition home or self-care (01) ==
LOC: OR 09:50
PROVIDERS: ATTEND Otolaryngology
DX: J35.01 Chronic tonsillitis (principal); Z72.0 Tobacco use; R00.2 Palpitations; J45.909 Unspecified asthma, uncomplicated; R07.9 Chest pain, unspecified; K58.9 Irritable bowel syndrome, unspecified
CPT/HCPCS: 81025; 88304; J1100; J2175; J2250; J3010

== ENCOUNTER 2019-09-15 01:00 | Emergency (ER) | payer SELFPAY ==
--- NOTE | 2019-09-15 01:21 | ED ---
Upper Extremity Pain - HPI Summary HPI Summary: 29 year old female presents with left wrist injury today. States that she was holding a mop when it slipped and she landed on her left wrist. She has pain on ulnar aspect of the left wrist. no previous surgeries or fractures to the wrist. Denies any numbness or tingling. She is right-handed. 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 - History of Current Complaint Chief Complaint: EDExtremityUpper Stated Complaint: WRIST INJURY PER PT Time Seen by Provider: 09/15/19 01:15 - Allergies/Home Medications Allergies/Adverse Reactions: Allergies Allergy/AdvReac Type Severity Reaction Status Date / Time latex Allergy Intermediate See Comment Verified 09/15/19 01:03 morphine Allergy Intermediate Shortness Verified 09/15/19 01:03 of Breath POLLY ROOT Allergy MOUTH PAIN Uncoded 09/15/19 01:03 PMH/Surg Hx/FS Hx/Imm Hx Endocrine/Hematology History: Reports: Hx Anemia Denies: Hx Anticoagulant Therapy, Hx Diabetes, Hx Thyroid Disease Cardiovascular History: Reports: Hx Angina, Other Cardiovascular Problems/ Disorders - HAVING A STRESS TEST ON 05/19/18 Denies: Hx Coronary Artery Disease, Hx Hypercholesterolemia, Hx Hypertension , Hx Myocardial Infarction, Hx Pacemaker/ICD, Hx Valvular Heart Disease Respiratory History: Reports: Hx Asthma Denies: Hx Chronic Obstructive Pulmonary Disease (COPD) GI History: Reports: Hx Irritable Bowel History: Denies: Hx Renal Disease Sensory History: Reports: Hx Contacts or Glasses Denies: Hx Hearing Aid Opthamlomology History: Reports: Hx Contacts or Glasses Neurological History: Reports: Hx Migraine - HX OF- PRN MEDICATION FOR Denies: Hx Dementia, Hx Seizures Psychiatric History: Reports: Hx Anxiety, Hx Depression, Other Psychiatric Issues/Disorders - "hx mental illness" Denies: Hx Panic Disorder, Hx Substance Abuse - Surgical History Surgery Procedure, Year, and Place: C SECTION 6 MOS AGO, UTERINE POLYP REMOVAL Hx Anesthesia Reactions: Yes - SLOWER TO WAKE UP-"SUPER DROWSY" - Immunization History Date of Tetanus Vaccine: up to date per pt Infectious Disease History: No Infectious Disease History: Denies: Hx Hepatitis, Hx Human Immunodeficiency Virus (HIV), Traveled Outside the [place] in Last 30 Days - Family History Known Family History: Negative: Blood Disorder - Social History Alcohol Use: Occasionally Substance Use Type: Reports: None Substance Use Comment - Amount & Last Used: occasional Smoking Status (MU): Light Every Day Tobacco Smoker Type: Cigarettes Amount Used/How Often: 5-7 CIGARETTES PER DAY X 10 YEARS Have You Smoked in the Last Year: Yes Review of Systems Negative: Fever Negative: Chest Pain Negative: Shortness Of Breath Positive: Myalgia - left wrist pain All Other Systems Reviewed And Are Negative: Yes Physical Exam Triage Information Reviewed: Yes Vital Signs On Initial Exam: Initial Vitals Temp Pulse Resp BP Pulse Ox 97.8 F 81 15 142/84 99 09/15/19 01:01 09/15/19 01:01 09/15/19 01:01 09/15/19 01:01 09/15/19 01:01 Vital Signs Reviewed: Yes Appearance: Positive: Well-Appearing Skin: Positive: Warm, Dry Head/Face: Positive: Normal Head/Face Inspection Eyes: Positive: Normal, Conjunctiva Clear ENT: Positive: Pharynx normal Respiratory/Lung Sounds: Positive: Clear to Auscultation, Breath Sounds Present Cardiovascular: Positive: Normal, RRR Musculoskeletal: Positive: Limited @ - left wrist, Other - tenderness 5th metacarpel and ulnar aspect left wrist, good pulses, no snuff box tenderness Procedures - Sedation Patient Received Moderate/Deep Sedation with Procedure: No Diagnostics - Vital Signs Vital Signs Temp Pulse Resp BP Pulse Ox 09/15/19 01:01 97.8 F 81 15 142/84 99 - Laboratory Lab Statement: Any lab studies that have been ordered have been reviewed, and results considered in the medical decision making process. - Radiology wrist Radiology Interpretation Completed By: ED Physician Summary of Radiographic Findings: no fracture Course/Dx - Course Course Of Treatment: 29 year old female presents with left wrist injury today. States that she was holding a mop when it slipped and she landed on her left wrist. She has pain on ulnar aspect of the left wrist. no previous surgeries or fractures to the wrist. Denies any numbness or tingling. She is right- handed. 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 On exam has edema noted to the left wrist over the 5th metacarpal and ulnar aspect. neurovascular tenderness. Neurovascular intact. X-ray shows no fracture. Placed in Bernard. told to ice and elevate. Patient understands and agrees plan. - Diagnoses Differential Diagnosis/HQI/PQRI: Positive: Contusion, Fracture (Closed), Strain Provider Diagnoses: Left wrist injury Discharge ED - Sign-Out/Discharge Documenting (check all that apply): Patient Departure - Discharge Plan Condition: Good Disposition: HOME Patient Education Materials: Wrist Injury (ED) Referrals: Maximino Díaz MD [Primary Care Provider] - Maximino Ramirez MD [Medical Doctor] - Additional Instructions: Take Tylenol or ibuprofen every 6 hours as needed for pain Apply ice, rest, elevate Follow up with primary or ortho if no improvement Return to ED if develop any new or worsening symptoms - Billing Disposition and Condition Condition: GOOD Disposition: Home
[2019-09-15 02:05] VITALS: BP 119/69
== END 2019-09-15 02:04 | disposition home or self-care (01) ==
LOC: ED 01:00
DX: S69.92XA Unspecified injury of left wrist, hand and finger(s), initial encounter (principal); W22.8XXA Striking against or struck by other objects, initial encounter; Y92.9 Unspecified place or not applicable; Z91.040 Latex allergy status; Z88.5 Allergy status to narcotic agent; Z91.09 Other allergy status, other than to drugs and biological substances
CPT/HCPCS: 99282

== ENCOUNTER 2023-04-23 05:34 | Inpatient (IN) ==
[2023-04-23] MEDS ORDERED: Lactated Ringers 1000 ml BAG 1,000 ML IV ONE (06:09)
[2023-04-23] MEDS ORDERED: ceFOXitin 2 GM IVPREMIX 2 GM/50 ML BAG IVPB ONE (06:09)
[2023-04-23] MEDS ORDERED: Buffered Lidocaine 1% SYRIN 1 ml INTRADERM ONE (06:09)
[2023-04-23 06:25] LABS: ABS Basophils 0.1 10^3/uL (0.0-0.1); ABS Eosinophils 0.1 10^3/uL (0.0-0.5); ABS Lymphocytes 2.5 10^3/uL (1.0-4.8); ABS Monocytes 0.7 10^3/uL (0.0-0.9); Eosinophil % 1.4 %; Hematocrit 31.1 % (35-45); Hemoglobin 10.5 g/dL (11.5-14.3); Lymphocyte % 26.2 %; Mean Corpuscular Hemoglobin 30.4 pg (27-33); Mean Corpuscular Hgb Conc 33.8 g/dL (31-36); Mean Corpuscular Volume 90.2 fL (80-97); Mean Platelet Volume 8.3 fL (7.5-11.2); Platelet Count 256 10^3/uL (150-450); Red Blood Count 3.44 10^6/uL (3.63-4.92); Red Cell Distribution Width 13.8 % (12-17); White Blood Count 9.4 10^3/uL (3.8-11.8)
[2023-04-23] MEDS ORDERED: Lactated Ringers 1000 ml BAG 1,000 ML IV SCH ×2 (07:00→10:00)
[2023-04-23] MEDS ORDERED: Sodium Citrate/Citric Acid LIQ 15 ML UDC PO ONE (07:06)
[2023-04-23] MEDS ORDERED: Ondansetron 4 mg VIAL 2 MG/ML 2 ml VIAL ONE (07:22)
[2023-04-23] MEDS ORDERED: fentaNYL 100 mcg/2 ml 50 MCG/ML VIAL ONE (07:23)
[2023-04-23] MEDS ORDERED: Phenylephrine IV 10 MG/ML 1 ml VIAL ONE (07:25)
[2023-04-23 08:08] LABS: Urine Benzodiazepine Screen None Detected (None Detect); Urine Cannabinoids Screen None Detected (None Detect); Urine Opiates Screen None Detected (None Detect)
[2023-04-23] MEDS ORDERED: Albuterol HFA INHALER 8 gm MDI INH PRN (08:08)
[2023-04-23] MEDS ORDERED: Oxytocin 10 UNITS/ML 1 ML VIAL ONE (08:36)
[2023-04-23] MEDS ORDERED: Acetaminophen IV 1 GM/100ML 1,000 MG/100 ML BAG IV ONE (08:50)
[2023-04-23] MEDS ORDERED: Dexamethasone IV 4 MG/ML VIAL 1 ml VIAL ONE (08:51)
[2023-04-23] MEDS ORDERED: Naloxone 0.4 mg VIAL 0.4 mg/ml 1 ml VIAL IV PRN (09:12)
[2023-04-23] MEDS ORDERED: fentaNYL 100 mcg/2 ml 50 MCG/ML VIAL IV PRN (09:12)
[2023-04-23] MEDS ORDERED: Glycerin ADULT 2.4 gm SUPP PR PRN (09:30)
[2023-04-23] MEDS ORDERED: Witch Hazel PAD JAR TOPICAL PRN (09:30)
[2023-04-23] MEDS ORDERED: Oxytocin in LR 20,000 MILLI.UNIT/1,000 ML BAG IV SCH (09:30)
[2023-04-23 10:08] LABS: Urine Appearance Clear; Urine Bilirubin Negative (Negative); Urine Blood Negative (Negative); Urine Color Colorless; Urine Glucose Negative (Negative); Urine Ketones Negative (Negative); Urine Nitrite Negative (Negative); Urine Protein Negative (Negative); Urine Specific Gravity 1.003 (1.002-1.030); Urine Urobilinogen Negative (Negative)
[2023-04-24 06:49] LABS: ABS Basophils 0.1 10^3/uL (0.0-0.1); ABS Eosinophils 0.1 10^3/uL (0.0-0.5); ABS Monocytes 1.1 10^3/uL (0.0-0.9); ABS Neutrophils 9.9 10^3/uL (1.5-7.6); Eosinophil % 0.8 %; Hematocrit 27.8 % (35-45); Hemoglobin 9.3 g/dL (11.5-14.3); Lymphocyte % 21.5 %; Mean Corpuscular Hemoglobin 30.5 pg (27-33); Mean Corpuscular Hgb Conc 33.3 g/dL (31-36); Mean Corpuscular Volume 91.4 fL (80-97); Mean Platelet Volume 8.3 fL (7.5-11.2); Platelet Count 232 10^3/uL (150-450); Red Blood Count 3.04 10^6/uL (3.63-4.92); Red Cell Distribution Width 13.9 % (12-17); White Blood Count 14.2 10^3/uL (3.8-11.8)
[2023-04-25 08:29] VITALS: BP 100/60
== END 2023-04-25 15:35 | disposition home or self-care (01) | DRG 540 ==
LOC: MCHOB 05:34
PROVIDERS: ADMIT Obstetrics & Gynecology; ATTEND Obstetrics & Gynecology

== ENCOUNTER 2024-05-18 05:12 | Inpatient (IN) ==
[~2024-05-18 05:12] MED LIST changes: +Acetaminophen IV 1 GM/100ML 1,000 MG/100 ML BAG IV PRN; -Buffered Lidocaine 0.9% SYRIN* 5 ML/SYR SYRINGE INTRADERM ONE; -Dexamethasone IV* 4 MG/ML 1 ML (4 MG) IV SLOW PU ONE; -Famotidine IV* 10 MG/ML 2 ML (20 mg) IV ONE; +Metoclopramide 5 MG/ML VIAL (10 mg) IV PRN; +Naloxone 0.4 mg VIAL 0.4 mg/ml 1 ml VIAL IV PUSH PRN; +Ondansetron 4 mg VIAL 2 MG/ML 2 ml VIAL IV PRN
[2024-05-18 06:13] LABS: Hematocrit 34.5 % (35-45); Hemoglobin 11.3 g/dL (11.5-14.3); Mean Corpuscular Hemoglobin 30.4 pg (27-33); Mean Corpuscular Hgb Conc 32.9 g/dL (31-36); Mean Corpuscular Volume 92.3 fL (80-97); Mean Platelet Volume 8.1 fL (7.5-11.2); Platelet Count 203 10^3/uL (150-450); Red Blood Count 3.74 10^6/uL (3.63-4.92); Red Cell Distribution Width 19.2 % (12-17); White Blood Count 7.2 10^3/uL (3.8-11.8)
[2024-05-18] MEDS ORDERED: Ondansetron 4 mg VIAL 2 MG/ML 2 ml VIAL ONE (07:06)
[2024-05-18] MEDS ORDERED: Oxytocin 10 UNITS/ML 1 ML VIAL ONE ×2 (07:06→08:25)
[2024-05-18] MEDS ORDERED: Dexamethasone IV 4 MG/ML VIAL 1 ml VIAL ONE (07:06)
[2024-05-18] MEDS ORDERED: fentaNYL 100 mcg/2 ml 50 MCG/ML VIAL ONE (07:07)
[2024-05-18] MEDS ORDERED: Morphine PF AMP (0.5MG/ML) 5 MG/10 ML AMP ONE (07:07)
[2024-05-18] MEDS ORDERED: Sodium Citrate/Citric Acid LIQ 15 ML UDC ONE (07:25)
[2024-05-18] MEDS: ceFOXitin 2 GM IVPREMIX 2 GM/50 ML BAG IVPB ONE (07:56)
[2024-05-18] MEDS ORDERED: Acetaminophen IV 1 GM/100ML 1,000 MG/100 ML BAG IV ONE ×2 (08:40)
[2024-05-18 09:22] LABS: Urine Appearance Clear; Urine Bilirubin Negative (Negative); Urine Blood Negative (Negative); Urine Color Colorless; Urine Glucose Negative (Negative); Urine Ketones Negative (Negative); Urine Nitrite Negative (Negative); Urine Protein Negative (Negative); Urine Specific Gravity 1.005 (1.002-1.030); Urine Urobilinogen Negative (Negative)
[2024-05-18 09:46] LABS: Urine Benzodiazepine Screen None Detected (None Detect); Urine Cannabinoids Screen None Detected (None Detect); Urine Opiates Screen None Detected (None Detect)
[2024-05-18] MEDS ORDERED: Glycerin ADULT 2.4 gm SUPP PR PRN (13:40)
[2024-05-18] MEDS ORDERED: Witch Hazel PAD JAR TOPICAL PRN (13:40)
[2024-05-18] MEDS ORDERED: Lactated Ringers 1000 ml BAG 1,000 ML IV SCH (14:00)
[2024-05-18] MEDS: Oxytocin in LR 20,000 MILLI.UNIT/1,000 ML BAG IV SCH (14:59)
[2024-05-18] MEDS: Lactated Ringers 1000 ml BAG 1,000 ML IV SCH (17:09)
[2024-05-19] MEDS: Calcium Carb (TUMS) 500 mg CHEW TAB PO PRN (03:36)
[2024-05-19 07:10] LABS: ABS Eosinophils 0.1 10^3/uL (0.0-0.5); ABS Lymphocytes 2.5 10^3/uL (1.0-4.8); ABS Monocytes 0.8 10^3/uL (0.0-0.9); ABS Neutrophils 7.5 10^3/uL (1.5-7.6); ABS Nucleated RBC 0.01 10^3/ul; Eosinophil % 0.6 %; Hematocrit 31.9 % (35-45); Hemoglobin 10.7 g/dL (11.5-14.3); Lymphocyte % 22.8 %; Mean Corpuscular Hemoglobin 31.5 pg (27-33); Mean Corpuscular Hgb Conc 33.5 g/dL (31-36); Mean Platelet Volume 8.5 fL (7.5-11.2); Nucleated Red Blood Cells % 0.1 %/100WBC (0.0-0.8); Platelet Count 172 10^3/uL (150-450); Red Blood Count 3.39 10^6/uL (3.63-4.92); Red Cell Distribution Width 19.4 % (12-17); White Blood Count 10.9 10^3/uL (3.8-11.8)
[2024-05-19] MEDS: Polyethylene Glycol 3350 17 GM PACKET PO PRN (08:34)
[2024-05-19] MEDS: Sodium Citrate/Citric Acid LIQ 15 ML UDC PO ONE (19:45)
[2024-05-19] MEDS: Buffered Lidocaine 1% SYRIN 1 ml INTRADERM ONE (19:45)
[2024-05-19] MEDS: Lactated Ringers 1000 ml BAG 1,000 ML IV ONE (19:45)
[2024-05-19 20:19] VITALS: BP 105/59
== END 2024-05-20 14:30 | disposition home or self-care (01) | DRG 540 ==
LOC: MCHOB 05:12
PROVIDERS: ADMIT Obstetrics & Gynecology; ATTEND Obstetrics & Gynecology